=== PATIENT | female | born 1975 | race Caucasian/White ===

== ENCOUNTER → 2020-01-18 | Outpatient (CLI) | payer OTHER ==
--- NOTE | 2020-01-18 17:51 | Diagnostic Imaging Report ---
INDICATION: Palpable lump in the right breast. COMPARISON: No prior mammograms are available for comparison. 2-D and 3-D bilateral diagnostic mammography was performed. Current study was also evaluated with a Computer Aided Detection (CAD) system. BB marker was placed at the area of palpable abnormality in the upper and outer right breast. FINDINGS: There is a large lobulated mass in the upper and outer right breast at the area of palpable abnormality, anterior depth. This abuts the skin on the MLO view. There are some central suspicious microcalcifications. This is concerning for a breast neoplasm. In addition, there appears to be an enlarged lymph node in the right axilla. Left breast also shows a lobulated density in the outer aspect at posterior depth best seen on the CC view. There are some more benign-appearing nodular densities in the medial left breast at posterior depth best seen on the CC view. All of these areas will be evaluated with ultrasound. Left axilla is unremarkable. IMPRESSION: 1. Large mass in upper-outer right breast anterior depth corresponding to the palpable abnormality. This has central suspicious microcalcifications. This is concerning for a breast neoplasm and ultrasound evaluation will be performed. 2. Lobulated mass in the outer aspect of the left breast posterior depth, indeterminate. There are also smaller nodular densities in medial left breast posterior depth. These areas will be evaluated with ultrasound as well. ACR BI-RADS Category 0: Incomplete. (Needs additional imaging evaluation). Result letter will be mailed to the patient. Note: At least 10% of breast cancer is not imaged by mammography. Dictated by: Dictated on workstation # [id number]
--- NOTE | 2020-01-18 17:56 | Diagnostic Imaging Report ---
INDICATION: Palpable lump right breast. Patient had an abnormal diagnostic mammogram performed earlier today. Diagnostic mammogram also demonstrated left breast nodular densities. Correlation is made with diagnostic mammogram earlier same day. FINDINGS: Right breast: Sonographic interrogation in the area of palpable abnormality corresponds to the large mass noted on mammogram. There is a 4.3 cm x 3.2 cm x 4.8 cm heterogeneous mass with internal vascularity at the 10 o'clock location, 5 cm from the nipple. No other masses in the right breast are seen. There is an enlarged lymph node in the right axilla measuring 2.7 x 2.0 x 1.4 cm. This is concerning for a metastatic lymph node. Left breast: Interrogation of the outer left breast demonstrates a slightly lobulated but fairly well-circumscribed solid mass at the 3 o'clock location, 8 cm from the nipple. This measures 2.1 x 1.2 x 1.5 cm. This does show some internal vascularity. In addition, the medial left breast was evaluated. There is a solid nodule with adjacent cyst at the 9 o'clock location 3 cm from the nipple. In aggregate, these measure 10 mm x 7 mm x 5 mm. This is indeterminate. No other masses are seen. IMPRESSION: 1. Large, lobulated solid mass at the area of palpable abnormality in the right breast, 10 o'clock location. This is concerning for a large breast neoplasm. In addition, there is an enlarged lymph node in the right axilla. Tissue sampling of the mass and lymph node is recommended. 2. Macrolobulated solid nodule at the 3 o'clock location in the left breast. This may represent a fibroadenoma. However, in light of the findings in the right breast, tissue sampling of this lesion would be recommended. 3. Indeterminate hypoechoic nodule at the 9 o'clock location of the left breast, 3 cm from the nipple. Tissue sampling is recommended. ACR BI-RADS Category 4: Suspicious abnormality. Result letter will be mailed to the patient. Note: At least 10% of breast cancer is not imaged by mammography. Dictated by: Dictated on workstation # [id number]
== END ==
LOC: RAD 13:39 → EDBD 13:39
PROVIDERS: ATTEND Nurse Practitioner Family
DX: N63.10 Unspecified lump in the right breast, unspecified quadrant (principal); N63.11 Unspecified lump in the right breast, upper outer quadrant; N63.20 Unspecified lump in the left breast, unspecified quadrant
CPT/HCPCS: 76642; 77066; G0279; 77062

== ENCOUNTER → 2020-01-23 | Outpatient (CLI) | payer OTHER ==
[~2020-01-23] VITALS: Ht 170.2 cm; Wt 77.3 kg
[~2020-01-23] MED LIST: LIDOCAINE 1% INJ 20 ML 20 ML VIAL INJ ONE
--- NOTE | 2020-01-23 12:32 | Diagnostic Imaging Report ---
INDICATION: Right breast mass. Patient presents for biopsy. Patient brought to the procedure room placed on table in supine position. Ultrasound imaging of the right breast and right axilla was performed to evaluate appropriate entry site. The right breast and right axilla was prepped and draped in usual sterile fashion. A small amount of 1% lidocaine was utilized for local anesthesia. A total of 4 core biopsies were made into the large solid mass at the 10-12:30 location of the right breast, 5 cm from the nipple. Biopsies were obtained with the 14-gauge Achieve needle. Next, multiple passes were made into the enlarged lymph node utilizing a 14-gauge Achieve needle. Marker clips were deployed at the right axillary lymph node as well as the right breast mass. Hemostasis was obtained using manual compression. Patient tolerated the procedure well. IMPRESSION: Successful ultrasound-guided core biopsy of a large right upper outer quadrant breast mass as well as enlarged right axillary lymph node. Pathology results are currently pending. Dictated by: Dictated on workstation # [id number]
--- NOTE | 2020-01-23 12:34 | Diagnostic Imaging Report ---
INDICATION: Left breast mass. Patient presents for ultrasound-guided biopsy. Patient brought to the procedure room and placed on table in the supine position. Ultrasound imaging of the left breast was performed to evaluate appropriate entry site. Both the medial and lateral left breast was prepped and draped in usual sterile fashion. Small amount of 1% lidocaine was utilized for local anesthesia. Multiple biopsies of the small hypoechoic nodule at the 9 o'clock location of the left breast, 3 cm from the nipple were obtained using utilizing the 13-gauge vacuum-assisted handheld mammotome device. Marker clip was then deployed. Hemostasis was obtained. Next, multiple core biopsies were obtained of the lobulated solid mass at the 3 o'clock location left breast, 8 cm from the nipple, utilizing the 14-gauge Achieve needle. Marker clip was deployed. Hemostasis was obtained using manual compression. IMPRESSION: Successful ultrasound-guided core biopsies of the solid nodules at the 3 o'clock and 9 o'clock locations of the left breast, as described. Vacuum-assisted device was utilized for the 9 o'clock lesion. Pathology results are currently pending. Dictated by: Dictated on workstation # [id number]
--- NOTE | 2020-01-23 13:17 | Diagnostic Imaging Report ---
INDICATION: Bilateral breast masses. Patient is status post ultrasound-guided core biopsies. Bilateral CC, MLO and ML 2-D mammography was performed post biopsy. A marker clip is identified within the mass in the upper outer right breast anterior to mid depth. There is also a marker clip in the in the right axilla from right axillary lymph node biopsy. There is a marker clip within the lesion in the lateral left breast. A marker clip in the medial left breast is also noted. IMPRESSION: Status post biopsies in bilateral breasts and right axilla with marker clips in place, as described. Dictated by: Dictated on workstation # [id number]
== END ==
LOC: RAD 07:35
PROVIDERS: ATTEND Nurse Practitioner Family
DX: N63.20 Unspecified lump in the left breast, unspecified quadrant (principal); N63.10 Unspecified lump in the right breast, unspecified quadrant
CPT/HCPCS: 19083 ×2; 19084 ×2; 77066; G0279; 77062

== ENCOUNTER → 2020-01-29 | Outpatient (CLI) | payer SELFPAY ==
[~2020-01-29] MED LIST changes: +ARIP5TAB12 PO; +HOLD METFORMIN - RECEIVED CONTRAST 20 ML VIAL IV SCH; +IOHEXOL 350 MG/ML 100 ML (OMNIPAQUE 350) VIAL IV ONE; -LIDOCAINE 1% INJ 20 ML 20 ML VIAL INJ ONE; +LISI-552 PO; +MULT-1076 PO; +NS 100 ML (IVPB) BAG IV ONE; +OMEP20TA33 PO; +VENL150C PO
--- NOTE | 2020-01-29 12:33 | Diagnostic Imaging Report ---
EXAMINATION: CT Chest, Abdomen and Pelvis with intravenous contrast. TECHNIQUE: Multiple contiguous axial images were obtained through the chest, abdomen and pelvis after the uneventful administration of intravenous contrast. All CT scans use one or more of the following dose optimizing techniques: automated exposure control, MA and/or KvP adjustment based on a patient size and exam type, or iterative reconstruction. HISTORY: Breast cancer COMPARISON: None available. FINDINGS: There is no edema or pneumonia. No pleural effusion. No pneumothorax. No suspicious nodules. Heart size is normal. There are no coronary artery calcifications. No pericardial effusion. Aorta is normal in caliber. There is no axillary or supraclavicular lymphadenopathy. There is no mediastinal lymphadenopathy. There is a 3.4 x 3.0 cm right breast mass. There is right axillary lymphadenopathy measuring up to 12 mm in short axis. There are multiple masses in the left breast measuring up to 19 mm laterally and 28 mm medially. The liver is normal without focal lesion. There is no biliary ductal dilation. Gallbladder is normal. Pancreas is normal. Spleen is normal. Adrenal glands are normal. The kidneys are normal. There is no hydronephrosis. Urinary bladder is normal. Uterus is enlarged with endometrial thickening. Visualized bowel is normal in caliber without obstruction or inflammation. No free fluid or air. No abdominal or pelvic lymphadenopathy. Aorta is normal in caliber without aneurysm. There are no suspicious osseus lesions. IMPRESSION: 1. Bilateral breast masses, right greater than left with right axillary lymphadenopathy. 2. No intrathoracic or abdominal or pelvic lymphadenopathy. Dictated by: Dictated on workstation # [id number]
== END ==
LOC: RAD 11:22
PROVIDERS: ATTEND Internal Medicine Hematology & Oncology
DX: N63.20 Unspecified lump in the left breast, unspecified quadrant (principal); N63.10 Unspecified lump in the right breast, unspecified quadrant; R59.0 Localized enlarged lymph nodes; Z85.3 Personal history of malignant neoplasm of breast
CPT/HCPCS: 71260; 74177

== ENCOUNTER 2020-02-04 05:29 | Outpatient (RCR) | payer MEDICAID ==
[~2020-02-04] VITALS: Ht 170 cm; Wt 72.7 kg
[~2020-02-04 05:29] MED LIST changes: -HOLD METFORMIN - RECEIVED CONTRAST 20 ML VIAL IV SCH; -IOHEXOL 350 MG/ML 100 ML (OMNIPAQUE 350) VIAL IV ONE; -NS 100 ML (IVPB) BAG IV ONE
== END 2020-02-04 10:29 | disposition home or self-care (01) ==
LOC: PREOP 05:29
PROVIDERS: ATTEND Surgery
DX: Z01.812 Encounter for preprocedural laboratory examination (principal); C50.919 Malignant neoplasm of unspecified site of unspecified female breast; Z20.828 Contact with and (suspected) exposure to other viral communicable diseases
CPT/HCPCS: 87635

== ENCOUNTER → 2020-02-05 | Outpatient (CLI) | payer MEDICAID ==
[~2020-02-05] MED LIST changes: +CATHETER FLUSH 10 ML SYR IV PRN; +HEParin (CENTRAL IV FLUSH) 500 UNIT/5 ML SYR ONE; +HYDR-4226 PO
--- NOTE | 2020-02-05 14:16 | Diagnostic Imaging Report ---
EXAMINATION: MUGA scan INDICATION: Breast cancer The study was performed following administration of 31.8 mCi of 99M technetium tagged red blood cells. There are no prior MUGA scans available for comparison. There is generalized distribution of the radiotracer throughout the cardiac system. The ejection fraction is 65%. IMPRESSION: The ejection fraction is 65%. Dictated by: Dictated on workstation # [id number]
== END ==
LOC: CARD 12:25
PROVIDERS: ATTEND Internal Medicine Hematology & Oncology
DX: Z51.81 Encounter for therapeutic drug level monitoring (principal); C50.919 Malignant neoplasm of unspecified site of unspecified female breast
CPT/HCPCS: 78472; A9560

== ENCOUNTER 2020-02-07 07:00 | Day surgery (SDC) | payer MEDICAID, OTHER ==
[~2020-02-07] VITALS: Ht 170 cm; Wt 72.7 kg
[~2020-02-07 07:00] MED LIST changes: -CATHETER FLUSH 10 ML SYR IV PRN; -HEParin (CENTRAL IV FLUSH) 500 UNIT/5 ML SYR ONE; -HYDR-4226 PO
[2020-02-07 07:05] VITALS: BP 130/92
[2020-02-07] MEDS ORDERED: LACTATED RINGERS 1,000 ML IV PRN (07:09)
[2020-02-07] MEDS ORDERED: PROPOFOL INJECTION 50 ML IV ONE (07:15)
[2020-02-07] MEDS ORDERED: ceFAZolin 2 GM IV Premixed 50 ML IV ONE (07:15)
[2020-02-07] MEDS ORDERED: MIDAZOLAM 2 MG/2 ML (VERSED) VIAL ONE (07:16)
[2020-02-07] MEDS ORDERED: 0.9% SODIUM CHLORIDE PF INJ 20 ML VIAL ONE (07:24)
[2020-02-07] MEDS ORDERED: BUP/EPI 0.5% 1:200,000 (MARCAINE) 10ML VIAL IJ ONE (07:24)
[2020-02-07] MEDS ORDERED: HEParin (CENTRAL IV FLUSH) 500 UNIT/5 ML SYR ONE (07:24)
[2020-02-07] MEDS ORDERED: CATHETER FLUSH 10 ML SYR IV PRN (07:30)
[2020-02-07] MEDS ORDERED: fentaNYL INJECTION 100 MCG/2 ML AMP ONE (07:58)
--- NOTE | 2020-02-07 08:13 | Progress Note-Pre Operative ---
Pre-Operative Progress Note H&P Reviewed The H&P was reviewed, patient examined and no changes noted. Time Seen by Provider: 08:10 Date H&P Reviewed: Feb 07, 2020 Time H&P Reviewed: 08:11 Pre-Operative Diagnosis: Breast CA, Venous Insufficiency FLY TODD DO Feb 07, 2020 08:13
[2020-02-07 08:55] VITALS: BP 125/82
--- NOTE | 2020-02-07 08:57 | Anesthesia-General Post-Op ---
MAC Patient Condition Mental Status/LOC: Same as Preop Cardiovascular: Satisfactory Nausea/Vomiting: Absent Respiratory: Satisfactory Pain: Controlled Complications: Absent Post Op Complications Complications None Follow Up Care/Instructions Patient Instructions None needed. Anesthesiology Discharge Order Discharge Order Patient is doing well, no complaints, stable vital signs, no apparent adverse anesthesia problems. No complications reported per nursing. RADHA WYATT CRNA Feb 07, 2020 08:57
[2020-02-07] MEDS ORDERED: MEPERIDINE (DEMEROL) INJ 50 MG/ML IVP ONE (09:00)
[2020-02-07] MEDS ORDERED: ONDANSETRON 4 MG/2 ML (SDV) Z0FRAN IVP PRN (09:00)
[2020-02-07] MEDS ORDERED: morphine INJ 10 MG/ML 1ML (SYR OR VIAL) IVP ONE (09:00)
--- NOTE | 2020-02-07 09:04 | Progress Note-Post Operative ---
Post-Operative Progess Note Surgeon (s)/Wash Oil Pump Operator Helper (s) Surgeon FLY TODD DO Wash Oil Pump Operator Helper: NONE Pre-Operative Diagnosis Breast CA, Venous Insufficiency Post-Operative Diagnosis SAME Procedure & Operative Findings Date of Procedure 02/07/20 Procedure Performed/Findings PROCEDURE: [LEFT] Subclavian vein port placement. COMPLICATIONS: None. INDICATIONS: The patient is a 44 year old female [with breast CA and Venous insufficiency]. Patient understands the risks and benefits of port placement and wished to proceed with the procedure. Consent was signed on the chart. PROCEDURE: The patient was taken to the operating suite, was prepped and draped in the sterile fashion. A surgical pause was performed. Local anesthetic was to infiltrate at the clavicle and then infiltrated in the left anterior chest wall where port would be placed. Next, using an 18 Gauge finder needle with negative inspiration the Left Subclavian vein was accessed. Dark nonpulsatile blood was withdrawn. The wire was inserted using Seldinger technique and fluoroscopy assured proper placement. The needle was removed and the guidewire was secured in place to the drape with a hemostat. Then a #11 blade scalpel was used to make a stab incision along the wire and to make an incision over the [left anterior] chest. Cautery was used to dissect down to the pectoral fascia. A pocket was created with blunt dissection. The dilator sheath was then advanced over the wire using Seldinger technique and fluoroscopy again confirmed placement. The Groshong catheter was inserted through the sheath and the sheath was then removed. The Groshong wire was removed. The catheter was then tunneled to the left chest pocket. Fluoroscopy was used to cut to length and this was then attached to the port which was then placed within the pocket. The port was then accessed without difficulty. It was then flushed with saline and then heparin. The subcutaneous tissues were then reapproximated using 3-0 Vicryl. Skin was closed with 4-0 Undyed Monocryl, 3 interuppted subcuticular stitches. The areas were then washed and dried. Skin Affix was placed over incision and at the insertion point of the subclavian. The patient tolerated the procedure well without complication and was taken to recovery room in stable condition. Anesthesia Type MAC Estimated Blood Loss Estimated blood loss (mL): less than 5ml Specimens/Packing Specimens Removed FLY Schultz DO Feb 07, 2020 09:04
[2020-02-07] MEDS ORDERED: HYDR-4226 PO ×4 (09:06→09:29)
--- NOTE | 2020-02-07 09:07 | Discharge Inst-Surgical ---
Discharge Inst-Surgical Depart Medication/Instructions New, Converted or Re-Newed RX: RX Given to Pt/Family Patient Instructions Follow up Appt: Make appointment for 10 days. [phone] Instructions: No lifting greater than 20 pounds. No strenuous activity. May shower in 24 hours, no tub bath or soaking. Use incentive spirometer at home as directed. No Smoking Skin/Wound Care: May remove bandages in am. You need to leave the Dermabond on incision it will fall off on it's own. Symptoms to Report: Appetite Changes, Extremity Discoloration, Numbness/Tingling, Swelling Increased, Bleeding Excessive, Eyesight Changes, Pain Increased, Urine Color Change, Constipation(Persistent), Fever over 101 degree F, Pain/Pressure in chest, Urinating Difficulty, Cough Up/Vomit Blood, Heart Beat Irreg/Pounding, Pain/Pressure in jaw, Cramps in feet or legs, Lightheadedness, Pain/Pressure in shoulder, Diarrhea(Persistent), Memory Changes Suddenly, Questions/Concerns, Weight gain consecutive days, Dizziness/Fainting, Nausea/Vomiting, Shortness of Breath, Weight gain over 2 pounds If questions or concerns contact your physician Or seek help at emergency department. Activity Activity as Tolerated: Yes Activity Instructions: Avoid Stress to Incision Driving Instructions: No Driving/Refer to Dr. Lang Discharge Diet: No Restrictions Diet After 24 Hours: Clear Liquid if Nauseous If Any Problems/Questions/Issu: Contact Your Physician, Go to Emergency Room Skin/Wound Care Infection Signs and Symptoms: Increased Redness, Foul Odor of Wound, Increased Drainage, Skin Itchy or Has a Rash, Increased Swelling, Temperature Above 101 F Bathing Instructions: Shower Stitches/[place]/Dermabond Dis: Dermabond Ice Pack: Ice On and Off Site FLY TODD DO Feb 07, 2020 09:07
[2020-02-07 09:10] VITALS: BP 120/82
[2020-02-07 09:25] VITALS: BP_SYST 122; BP_SYST 135; BP_DIAS 78; BP_DIAS 82
[2020-02-07 09:55] VITALS: BP 135/91
--- NOTE | 2020-02-07 11:14 | Diagnostic Imaging Report ---
EXAMINATION: Fluoroscopy at 843 INDICATION: Port placement Fluoroscopic assistance was provided for Dr. Alvarado Doe during his internal port placement procedure. 6.1 seconds of fluoroscopy time was visualized. A single spot film of the upper thorax shows that there is a central venous catheter in place on the left with the tip of the catheter overlying the midportion superior vena cava. IMPRESSION: Fluoroscopic assistance was provided for Dr. Doe. Dictated by: Dictated on workstation # [id number]
== END 2020-02-07 10:05 | disposition home or self-care (01) ==
LOC: SDC 07:00
PROVIDERS: ATTEND Surgery
DX: C50.911 Malignant neoplasm of unspecified site of right female breast (principal); I87.2 Venous insufficiency (chronic) (peripheral); I10 Essential (primary) hypertension; G40.909 Epilepsy, unspecified, not intractable, without status epilepticus; F32.9 Major depressive disorder, single episode, unspecified; F41.9 Anxiety disorder, unspecified; K21.9 Gastro-esophageal reflux disease without esophagitis; Z79.899 Other long term (current) drug therapy; Z11.2 Encounter for screening for other bacterial diseases
CPT/HCPCS: 36561; 76000; 84703; 87081; C1788

== ENCOUNTER → 2020-04-08 | Outpatient (CLI) | payer MEDICAID, OTHER ==
[~2020-04-08] MED LIST changes: +CATHETER FLUSH 10 ML SYR IV PRN; +HEParin (CENTRAL IV FLUSH) 500 UNIT/5 ML SYR ONE; +HYDR-4226 PO
--- NOTE | 2020-04-08 16:00 | Diagnostic Imaging Report ---
EXAMINATION: MUGA scan. INDICATION: Breast cancer. Cardiotoxicity. TECHNIQUE: This study was performed following administration of 31.3 mCi of 99 technetium tagged red blood cells. Multiple images of the heart were obtained. FINDINGS: The prior MUGA scan of 02/05/2020 noted an ejection fraction of 65%. On this exam, the ejection fraction is now 67%. IMPRESSION: There has been a slight increase in the ejection fraction since the prior exam. The ejection fraction is now estimated to be 67%. Dictated by: Dictated on workstation # [id number]
== END ==
LOC: CARD 14:00
PROVIDERS: ATTEND Internal Medicine Hematology & Oncology
DX: Z51.81 Encounter for therapeutic drug level monitoring (principal); C50.411 Malignant neoplasm of upper-outer quadrant of right female breast
CPT/HCPCS: 78472; A9560

== ENCOUNTER 2020-04-25 12:54 | Outpatient (RCR) | payer MEDICAID, OTHER ==
[2020-01-28 15:52] LABS: BASOPHILS # (AUTO) 0.1 10^3/uL (0.0-0.1); BASOPHILS % (AUTO) 1 % (0-10); EOSINOPHILS # (AUTO) 0.1 10^3/uL (0.0-0.3); EOSINOPHILS % (AUTO) 1 % (0-10); HEMATOCRIT 36 % (35-52); HEMOGLOBIN 11.2 G/DL (11.5-16.0); LYMPHOCYTES # (AUTO) 1.7 X 10^3 (1.0-4.0); LYMPHOCYTES % (AUTO) 19 % (12-44); MEAN CORPUSCULAR HEMOGLOBIN 23 PG (25-34); MEAN CORPUSCULAR HGB CONC 31 G/DL (32-36); MEAN CORPUSCULAR VOLUME 74 FL (80-99); MEAN PLATELET VOLUME 8.7 FL (7.4-10.4); MONOCYTES # (AUTO) 0.8 X 10^3 (0.0-1.0); MONOCYTES % (AUTO) 9 % (0-12); NEUTROPHILS # (AUTO) 6.6 X 10^3 (1.8-7.8); NEUTROPHILS % (AUTO) 71 % (42-75); PLATELET COUNT 332 10^3/uL (130-400); WHITE BLOOD COUNT 9.3 10^3/uL (4.3-11.0)
[2020-01-28 16:18] LABS: ALANINE AMINOTRANSFERASE 14 U/L (0-55); ALBUMIN 4.2 GM/DL (3.2-4.5); ALKALINE PHOSPHATASE 83 U/L (40-136); BILIRUBIN,TOTAL 0.3 MG/DL (0.1-1.0); BUN/CREATININE RATIO 18; CALCIUM 9.3 MG/DL (8.5-10.1); CARBON DIOXIDE 22 MMOL/L (21-32); CHLORIDE 104 MMOL/L (98-107); CREATININE SERUM 0.82 MG/DL (0.60-1.30); GFR ESTIMATED > 60; GLUCOSE 97 MG/DL (70-105); POTASSIUM 3.8 MMOL/L (3.6-5.0); SODIUM 136 MMOL/L (135-145); TOTAL PROTEIN 7.4 GM/DL (6.4-8.2)
[2020-02-28 09:45] LABS: BASOPHILS # (AUTO) 0.1 10^3/uL (0.0-0.1); BASOPHILS % (AUTO) 1 % (0-10); EOSINOPHILS # (AUTO) 0.1 10^3/uL (0.0-0.3); EOSINOPHILS % (AUTO) 0 % (0-10); HEMATOCRIT 38 % (35-52); HEMOGLOBIN 12.5 G/DL (11.5-16.0); LYMPHOCYTES # (AUTO) 1.6 X 10^3 (1.0-4.0); LYMPHOCYTES % (AUTO) 14 % (12-44); MEAN CORPUSCULAR HEMOGLOBIN 25 PG (25-34); MEAN CORPUSCULAR HGB CONC 33 G/DL (32-36); MEAN CORPUSCULAR VOLUME 77 FL (80-99); MEAN PLATELET VOLUME 8.5 FL (7.4-10.4); MONOCYTES # (AUTO) 0.7 X 10^3 (0.0-1.0); MONOCYTES % (AUTO) 6 % (0-12); NEUTROPHILS # (AUTO) 9.5 X 10^3 (1.8-7.8); NEUTROPHILS % (AUTO) 80 % (42-75); PLATELET COUNT 183 10^3/uL (130-400)
[2020-02-28 10:08] LABS: ALANINE AMINOTRANSFERASE 16 U/L (0-55); ALBUMIN 4.1 GM/DL (3.2-4.5); ALKALINE PHOSPHATASE 106 U/L (40-136); BILIRUBIN,TOTAL 0.2 MG/DL (0.1-1.0); BUN/CREATININE RATIO 14; CALCIUM 9.1 MG/DL (8.5-10.1); CARBON DIOXIDE 24 MMOL/L (21-32); CHLORIDE 104 MMOL/L (98-107); CREATININE SERUM 0.85 MG/DL (0.60-1.30); GFR ESTIMATED > 60; GLUCOSE 107 MG/DL (70-105); POTASSIUM 4.2 MMOL/L (3.6-5.0); SODIUM 136 MMOL/L (135-145); TOTAL PROTEIN 7.2 GM/DL (6.4-8.2)
[2020-03-13 09:08] LABS: BASOPHILS # (AUTO) 0.1 10^3/uL (0.0-0.1); BASOPHILS % (AUTO) 1 % (0-10); EOSINOPHILS % (AUTO) 0 % (0-10); HEMATOCRIT 31 % (35-52); HEMOGLOBIN 10.2 G/DL (11.5-16.0); LYMPHOCYTES # (AUTO) 1.1 X 10^3 (1.0-4.0); LYMPHOCYTES % (AUTO) 8 % (12-44); MEAN CORPUSCULAR HEMOGLOBIN 25 PG (25-34); MEAN CORPUSCULAR HGB CONC 33 G/DL (32-36); MEAN CORPUSCULAR VOLUME 78 FL (80-99); MEAN PLATELET VOLUME 8.2 FL (7.4-10.4); MONOCYTES # (AUTO) 0.8 X 10^3 (0.0-1.0); MONOCYTES % (AUTO) 6 % (0-12); NEUTROPHILS # (AUTO) 11.3 X 10^3 (1.8-7.8); NEUTROPHILS % (AUTO) 85 % (42-75); PLATELET COUNT 145 10^3/uL (130-400); WHITE BLOOD COUNT 13.4 10^3/uL (4.3-11.0)
[2020-03-13 09:31] LABS: ALANINE AMINOTRANSFERASE 17 U/L (0-55); ALBUMIN 3.8 GM/DL (3.2-4.5); ALKALINE PHOSPHATASE 104 U/L (40-136); BILIRUBIN,TOTAL 0.2 MG/DL (0.1-1.0); BUN/CREATININE RATIO 10; CALCIUM 9.3 MG/DL (8.5-10.1); CARBON DIOXIDE 26 MMOL/L (21-32); CHLORIDE 106 MMOL/L (98-107); CREATININE SERUM 0.82 MG/DL (0.60-1.30); GFR ESTIMATED > 60; GLUCOSE 95 MG/DL (70-105); POTASSIUM 3.7 MMOL/L (3.6-5.0); SODIUM 141 MMOL/L (135-145); TOTAL PROTEIN 6.4 GM/DL (6.4-8.2)
[2020-03-20 09:59] LABS: BASOPHILS % (AUTO) 2 % (0-10); EOSINOPHILS % (AUTO) 1 % (0-10); HEMATOCRIT 29 % (35-52); HEMOGLOBIN 9.6 G/DL (11.5-16.0); LYMPHOCYTES # (AUTO) 0.3 X 10^3 (1.0-4.0); LYMPHOCYTES % (AUTO) 15 % (12-44); MEAN CORPUSCULAR HEMOGLOBIN 25 PG (25-34); MEAN CORPUSCULAR HGB CONC 33 G/DL (32-36); MEAN CORPUSCULAR VOLUME 77 FL (80-99); MEAN PLATELET VOLUME 8.4 FL (7.4-10.4); MONOCYTES # (AUTO) 0.2 X 10^3 (0.0-1.0); MONOCYTES % (AUTO) 10 % (0-12); NEUTROPHILS # (AUTO) 1.5 X 10^3 (1.8-7.8); NEUTROPHILS % (AUTO) 72 % (42-75); PLATELET COUNT 163 10^3/uL (130-400); WHITE BLOOD COUNT 2.1 10^3/uL (4.3-11.0)
[2020-03-20 10:14] LABS: BUN/CREATININE RATIO 12; CALCIUM 8.6 MG/DL (8.5-10.1); CARBON DIOXIDE 27 MMOL/L (21-32); CHLORIDE 106 MMOL/L (98-107); CREATININE SERUM 0.66 MG/DL (0.60-1.30); GFR ESTIMATED > 60; GLUCOSE 128 MG/DL (70-105); POTASSIUM 3.8 MMOL/L (3.6-5.0); SODIUM 138 MMOL/L (135-145)
[2020-03-27 09:08] LABS: BASOPHILS # (AUTO) 0.1 10^3/uL (0.0-0.1); BASOPHILS % (AUTO) 1 % (0-10); EOSINOPHILS % (AUTO) 0 % (0-10); HEMATOCRIT 32 % (35-52); HEMOGLOBIN 10.2 G/DL (11.5-16.0); LYMPHOCYTES % (AUTO) 9 % (12-44); MEAN CORPUSCULAR HEMOGLOBIN 26 PG (25-34); MEAN CORPUSCULAR HGB CONC 32 G/DL (32-36); MEAN CORPUSCULAR VOLUME 80 FL (80-99); MEAN PLATELET VOLUME 7.7 FL (7.4-10.4); MONOCYTES # (AUTO) 0.9 X 10^3 (0.0-1.0); MONOCYTES % (AUTO) 7 % (0-12); NEUTROPHILS # (AUTO) 9.8 X 10^3 (1.8-7.8); NEUTROPHILS % (AUTO) 83 % (42-75); PLATELET COUNT 191 10^3/uL (130-400); WHITE BLOOD COUNT 11.8 10^3/uL (4.3-11.0)
[2020-03-27 09:41] LABS: ALANINE AMINOTRANSFERASE 19 U/L (0-55); ALBUMIN 3.7 GM/DL (3.2-4.5); ALKALINE PHOSPHATASE 110 U/L (40-136); BILIRUBIN,TOTAL 0.2 MG/DL (0.1-1.0); BUN/CREATININE RATIO 14; CALCIUM 8.5 MG/DL (8.5-10.1); CARBON DIOXIDE 20 MMOL/L (21-32); CHLORIDE 109 MMOL/L (98-107); CREATININE SERUM 0.79 MG/DL (0.60-1.30); GFR ESTIMATED > 60; GLUCOSE 94 MG/DL (70-105); POTASSIUM 3.8 MMOL/L (3.6-5.0); SODIUM 139 MMOL/L (135-145); TOTAL PROTEIN 6.3 GM/DL (6.4-8.2)
[2020-04-10 09:14] LABS: BASOPHILS # (AUTO) 0.1 10^3/uL (0.0-0.1); BASOPHILS % (AUTO) 0 % (0-10); EOSINOPHILS % (AUTO) 0 % (0-10); HEMATOCRIT 30 % (35-52); HEMOGLOBIN 9.7 g/dL (11.5-16.0); LYMPHOCYTES # (AUTO) 0.4 10^3/uL (1.0-4.0); LYMPHOCYTES % (AUTO) 2 % (12-44); MEAN CORPUSCULAR HEMOGLOBIN 27 pg (25-34); MEAN CORPUSCULAR HGB CONC 33 g/dL (32-36); MEAN CORPUSCULAR VOLUME 83 fL (80-99); MEAN PLATELET VOLUME 8.4 fL (9.0-12.2); MONOCYTES # (AUTO) 0.2 10^3/uL (0.0-1.0); MONOCYTES % (AUTO) 1 % (0-12); NEUTROPHILS # (AUTO) 19.7 10^3/uL (1.8-7.8); NEUTROPHILS % (AUTO) 86 % (42-75); PLATELET COUNT 137 10^3/uL (130-400); WHITE BLOOD COUNT 22.9 10^3/uL (4.3-11.0)
[2020-04-10 09:34] LABS: ALANINE AMINOTRANSFERASE 25 U/L (0-55); ALBUMIN 3.9 GM/DL (3.2-4.5); ALKALINE PHOSPHATASE 120 U/L (40-136); BILIRUBIN,TOTAL 0.2 MG/DL (0.1-1.0); BUN/CREATININE RATIO 10; CARBON DIOXIDE 20 MMOL/L (21-32); CHLORIDE 106 MMOL/L (98-107); CREATININE SERUM 0.81 MG/DL (0.60-1.30); GFR ESTIMATED > 60; GLUCOSE 198 MG/DL (70-105); MAGNESIUM 1.8 MG/DL (1.6-2.4); POTASSIUM 3.9 MMOL/L (3.6-5.0); SODIUM 138 MMOL/L (135-145); TOTAL PROTEIN 6.6 GM/DL (6.4-8.2)
[2020-04-24 09:23] LABS: BASOPHILS # (AUTO) 0.1 10^3/uL (0.0-0.1); BASOPHILS % (AUTO) 0 % (0-10); EOSINOPHILS % (AUTO) 0 % (0-10); HEMATOCRIT 32 % (35-52); HEMOGLOBIN 10.7 g/dL (11.5-16.0); LYMPHOCYTES # (AUTO) 0.9 10^3/uL (1.0-4.0); LYMPHOCYTES % (AUTO) 4 % (12-44); MEAN CORPUSCULAR HEMOGLOBIN 29 pg (25-34); MEAN CORPUSCULAR HGB CONC 33 g/dL (32-36); MEAN CORPUSCULAR VOLUME 89 fL (80-99); MEAN PLATELET VOLUME 8.8 fL (9.0-12.2); MONOCYTES # (AUTO) 0.1 10^3/uL (0.0-1.0); MONOCYTES % (AUTO) 1 % (0-12); NEUTROPHILS # (AUTO) 20.9 10^3/uL (1.8-7.8); NEUTROPHILS % (AUTO) 90 % (42-75); PLATELET COUNT 178 10^3/uL (130-400); WHITE BLOOD COUNT 23.2 10^3/uL (4.3-11.0)
[2020-04-24 09:43] LABS: ALANINE AMINOTRANSFERASE 37 U/L (0-55); ALBUMIN 4.3 GM/DL (3.2-4.5); ALKALINE PHOSPHATASE 138 U/L (40-136); BILIRUBIN,TOTAL 0.5 MG/DL (0.1-1.0); BUN/CREATININE RATIO 15; CALCIUM 9.4 MG/DL (8.5-10.1); CARBON DIOXIDE 19 MMOL/L (21-32); CHLORIDE 104 MMOL/L (98-107); CREATININE SERUM 0.81 MG/DL (0.60-1.30); GFR ESTIMATED > 60; GLUCOSE 207 MG/DL (70-105); SODIUM 136 MMOL/L (135-145); TOTAL PROTEIN 7.3 GM/DL (6.4-8.2)
[~2020-04-25] VITALS: Ht 170.2 cm; Wt 83.9 kg
[~2020-04-25 12:54] MED LIST changes: -CATHETER FLUSH 10 ML SYR IV PRN; +CYCLOPHOSPHAMIDE INJECTION 1,000 MG, CYCLOPHOSPHAMIDE INJECTION 200 MG in NS (IVPB) CAN... IV SCH; +FAMOTIDINE 20MG/2ML IV (CANCER CTR) IV SCH; +FOSAPREPITANT (CANCER CENTER) 150 MG in NS (IVPB) CANCER CENTER ONLY 150 ML IV SCH; -HEParin (CENTRAL IV FLUSH) 500 UNIT/5 ML SYR ONE; +NS IV 1000 ML (CANCER CTR) IV SCH; +PEGFILGRASTIM 6 MG/0.6ML NEULASTA SC SCH; +diphenhydrAMINE 25 MG TAB (BENADRYL) CANCER CENTER PO ONE; +diphenhydrAMINE 25 MG TAB (BENADRYL) CANCER CENTER PO SCH; +diphenhydrAMINE 50 MG/ML INJ (CANCER CENTER) IV PRN
== END 2020-04-27 | disposition home or self-care (01) ==
LOC: ONC 12:54
PROVIDERS: ATTEND Internal Medicine Hematology & Oncology
DX: Z51.11 Encounter for antineoplastic chemotherapy (principal); C50.411 Malignant neoplasm of upper-outer quadrant of right female breast; I10 Essential (primary) hypertension; R53.83 Other fatigue; Z87.898 Personal history of other specified conditions; Z86.59 Personal history of other mental and behavioral disorders
CPT/HCPCS: 80053; 84443; 85025; G0463; 36591; 80048; 82728; 83540; 83735; 84703; 96367; 96372; 96375; 96409; 96411; 96413; 96415; 99213; 99214

== ENCOUNTER 2020-06-16 05:31 | Outpatient (RCR) | payer MEDICAID ==
[~2020-06-16] VITALS: Ht 170.2 cm; Wt 85.9 kg
[~2020-06-16 05:31] MED LIST changes: -CYCLOPHOSPHAMIDE INJECTION 1,000 MG, CYCLOPHOSPHAMIDE INJECTION 200 MG in NS (IVPB) CAN... IV SCH; -FAMOTIDINE 20MG/2ML IV (CANCER CTR) IV SCH; -FOSAPREPITANT (CANCER CENTER) 150 MG in NS (IVPB) CANCER CENTER ONLY 150 ML IV SCH; -NS IV 1000 ML (CANCER CTR) IV SCH; +OMEP40CA27 PO; -PEGFILGRASTIM 6 MG/0.6ML NEULASTA SC SCH; -diphenhydrAMINE 25 MG TAB (BENADRYL) CANCER CENTER PO ONE; -diphenhydrAMINE 25 MG TAB (BENADRYL) CANCER CENTER PO SCH; -diphenhydrAMINE 50 MG/ML INJ (CANCER CENTER) IV PRN
== END 2020-06-16 13:42 | disposition home or self-care (01) ==
LOC: PREOP 05:31
PROVIDERS: ATTEND Surgery
DX: Z01.812 Encounter for preprocedural laboratory examination (principal); C50.919 Malignant neoplasm of unspecified site of unspecified female breast; Z20.828 Contact with and (suspected) exposure to other viral communicable diseases
CPT/HCPCS: 87635

== ENCOUNTER 2020-06-18 06:36 | Day surgery (SDC) | payer MEDICAID ==
[2020-06-18] VITALS (12 sets, daily range): BP systolic 107–128; BP diastolic 78–93
[~2020-06-18] VITALS: Ht 170.2 cm; Wt 86.4 kg
[2020-06-18] MEDS ORDERED: ceFAZolin 2 GM IV Premixed 50 ML IV ONE (07:00)
[2020-06-18] MEDS ORDERED: CATHETER FLUSH 10 ML SYR IV PRN (07:00)
[2020-06-18] MEDS: LACTATED RINGERS 1,000 ML IV PRN ×2 (07:11→11:30)
--- NOTE | 2020-06-18 09:26 | Diagnostic Imaging Report ---
INDICATION: Right breast carcinoma. DETAILS OF THE PROCEDURE: A total of 1.1 mCi of technetium 99m filtered sulfur colloid was injected in 4 separate aliquots in the periareolar distribution of the right breast. Imaging was then performed. There does appear to be migration of activity into the right axilla which was marked on the patient's skin. IMPRESSION: Right breast lymphoscintigraphy for identification of sentinel node. Dictated by: Dictated on workstation # [id number]
[2020-06-18] MEDS ORDERED: METHYLENE BLUE 0.5% (PROVAYBLUE) 50 mg/10 ml vial IV ONE (10:44)
[2020-06-18] MEDS ORDERED: LIDOCAINE/EPI 1%-1:100,000 (XYLOCAINE) 20ML ONE (10:44)
--- NOTE | 2020-06-18 11:17 | Progress Note-Pre Operative ---
Pre-Operative Progress Note H&P Reviewed The H&P was reviewed, patient examined and no changes noted. Time Seen by Provider: 11:12 Date H&P Reviewed: Jun 18, 2020 Time H&P Reviewed: 11:13 Pre-Operative Diagnosis: Right breast cancer, site marked FLY TODD DO Jun 18, 2020 11:17
[2020-06-18] MEDS ORDERED: proPOfol 200 MG/20 ML (DIPRIVAN) VIAL IV ONE ×2 (12:09→13:25)
[2020-06-18] MEDS ORDERED: ONDANSETRON 4 MG/2 ML (SDV) Z0FRAN ONE (12:09)
[2020-06-18] MEDS ORDERED: MIDAZOLAM 2 MG/2 ML (VERSED) VIAL ONE (12:09)
[2020-06-18] MEDS ORDERED: LIDOCAINE PF 2% 5 ML (XYLOCAINE) VIAL ONE (12:09)
[2020-06-18] MEDS ORDERED: fentaNYL INJECTION 100 MCG/2 ML AMP ONE (12:09)
[2020-06-18] MEDS ORDERED: ROCURONIUM 10 MG/ML 5 ML SYRINGE IV ONE (12:09)
[2020-06-18] MEDS ORDERED: SEVOFLURANE (ULTANE) 15 ML INHAL SOLN ONE ×5 (12:09→13:24)
--- NOTE | 2020-06-18 13:29 | Progress Note-Post Operative ---
Post-Operative Progess Note Surgeon (s)/Chipper Operator (s) Surgeon FLY TODD DO Chipper Operator: Malick Pre-Operative Diagnosis Right breast cancer, site marked Post-Operative Diagnosis same pending path Procedure & Operative Findings Date of Procedure 06/18/20 Procedure Performed/Findings 1. Injection of Methylene blue dye 2. Right Partial Mastectomy with sentinel lymph node biopsy Anesthesia Type GET Estimated Blood Loss Estimated blood loss (mL): appx 20ml Specimens/Packing Specimens Removed right breast cancer sentinel lymph node x 3 Packing: Counter #s Site 1259 Axillary skin 37 In Vivo 112 Ex Vivo 190 FLY TODD DO Jun 18, 2020 13:29
[2020-06-18] MEDS ORDERED: HYDR-4226 PO (13:30)
--- NOTE | 2020-06-18 13:31 | Discharge Inst-Surgical ---
Discharge Inst-Surgical Depart Medication/Instructions New, Converted or Re-Newed RX: RX Given to Pt/Family Patient Instructions Follow up Appt: Make appointment for 1 week. [phone] Instructions: No lifting greater than 20 pounds. No strenuous activity. May shower in 24 hours, no tub bath or soaking. Use incentive spirometer at home as directed. No Smoking Skin/Wound Care: May remove bandages in am. You need to leave the Dermabond on incision it will fall off on it's own. Symptoms to Report: Appetite Changes, Extremity Discoloration, Numbness/Tingling, Swelling Increased, Bleeding Excessive, Eyesight Changes, Pain Increased, Urine Color Change, Constipation(Persistent), Fever over 101 degree F, Pain/Pressure in chest, Urinating Difficulty, Cough Up/Vomit Blood, Heart Beat Irreg/Pounding, Pain/Pressure in jaw, Cramps in feet or legs, Lightheadedness, Pain/Pressure in shoulder, Diarrhea(Persistent), Memory Changes Suddenly, Questions/Concerns, Weight gain consecutive days, Dizziness/Fainting, Nausea/Vomiting, Shortness of Breath, Weight gain over 2 pounds If questions or concerns contact your physician Or seek help at emergency department. Activity Activity as Tolerated: Yes Activity Instructions: Avoid Stress to Incision Driving Instructions: No Driving/Refer to Dr. Lang Discharge Diet: No Restrictions Diet After 24 Hours: Clear Liquid if Nauseous If Any Problems/Questions/Issu: Contact Your Physician, Go to Emergency Room Skin/Wound Care Infection Signs and Symptoms: Increased Redness, Foul Odor of Wound, Increased Drainage, Skin Itchy or Has a Rash, Increased Swelling, Temperature Above 101 F Wound Care Comment: Wear a sports bra (or tight fitting bra) for 7 days, all day long except to shower Bathing Instructions: Shower Stitches/[place]/Dermabond Dis: FLY Clemons DO Jun 18, 2020 13:31
[2020-06-18] MEDS ORDERED: BUPIVACAINE 0.5% 30 ML (SENSORCAINE) VIAL ONE (13:56)
[2020-06-18] MEDS ORDERED: MEPERIDINE (DEMEROL) INJ 50 MG/ML IVP ONE (14:00)
[2020-06-18] MEDS ORDERED: morphine INJ 10 MG/ML 1ML (SYR OR VIAL) IVP ONE (14:00)
[2020-06-18] MEDS ORDERED: ONDANSETRON 4 MG/2 ML (SDV) Z0FRAN IVP PRN (14:00)
[2020-06-18] MEDS ORDERED: PROMETHAZINE INJ 25 MG/ML (PHENERGAN) AMP IVP ONE (14:00)
--- NOTE | 2020-06-18 14:13 | Anesthesia-General Post-Op ---
General Patient Condition Mental Status/LOC: Same as Preop Cardiovascular: Satisfactory Nausea/Vomiting: Absent Respiratory: Satisfactory Pain: Controlled Complications: Absent Post Op Complications Complications None Follow Up Care/Instructions Patient Instructions None needed. Anesthesia/Patient Condition Patient Condition Patient is doing well, no complaints, stable vital signs, no apparent adverse anesthesia problems. No complications reported per nursing. ELISEO COULTER CRNA Jun 18, 2020 14:13
--- NOTE | 2020-06-19 02:55 | OPERATIVE REPORT ---
DATE OF SERVICE: 06/18/2020 PREOPERATIVE DIAGNOSIS: Right breast cancer. POSTOPERATIVE DIAGNOSIS: Right breast cancer, pending pathology. PROCEDURES: 1. Injection of methylene blue. 2. Partial mastectomy with sentinel lymph node biopsy. SURGEON: Alvarado Doe DO REHABILITATION CASEWORKER: Jamari Teresa DO ANESTHESIA: General endotracheal tube. SPECIMEN: 1. Right breast mass and surrounding tissue. 2. [place] lymph nodes, three lymph nodes found, possibly four. BLOOD LOSS: Less than 20 mL. FLUIDS: Per anesthesia. POSTOPERATIVE CONDITION: Stable. INDICATION FOR PROCEDURE: The patient is a 44-year-old female who has right breast cancer, who has already had the chemotherapy and radiation and now needs partial mastectomy and sentinel node biopsy. FINDINGS: The patient had lymphoscintigraphy performed and then had right breast mass removed and at least 3 lymph nodes, possibly 4, the [place] counter readings at the site of injection was 1259, the axillary skin was 37, in vivo 112 and ex vivo 190 on the main lymph node, which was also blue. PROCEDURE NOTE: After informed consent was obtained, the patient first sent down to radiology for a lymphoscintigraphy injected and then checked with nuclear med, could see some transfer into lymph nodes. She was then brought down to the operating room, placed on the operating table in supine position. A timeout was performed and everyone agreed on that we were doing the right breast, which had been marked previously. At this point, then injected methylene blue 0.5 mL at the 12, 3, 6, and 9 o'clock position and then massaged this into the area for 5 minutes. Once this was done, she was then sterilely prepped and draped in normal fashion. Local lidocaine was used to infiltrate the skin along the radial line right just to the lateral aspect of 12 o'clock. This was right where we could palpate the mass, the breast cancer. Infiltrated with local, then made an incision with #15 blade, carried down through the skin and subcutaneous tissue creating flaps laterally and medially to go around this and then removing this tissue en bloc all the way down to the pectoralis major fascia. Once this was completely removed, then marked it with a short stitch anterior or one long lateral stitch and then 2 stitches at the inferior or 6 o'clock position, sent to pathology. Copiously irrigated this area with normal saline. Hemostasis obtained using Bovie electrocautery, then elected to use the same incision, dissecting down towards the axillary fat pad using the probe to try to help direct this towards the hot lymph node. Again, measured at the site of injection of the nipple was a 1259 prior to cutting axillary skin measured 37. Once skin was opened, we were dissecting out, the highest number we got was 112. Able to dissect down into axillary fat pad we came across couple of lymph nodes. These were removed with some axillary fat, passed off the table. They looked like there may have been blue, but then continued dissecting, found a harder lymph node. This was 112 in vivo dissected down and then actually found a large blue lymph node, grasped with Terry and able to remove this with Bovie electrocautery. Ex vivo measured 190. Looked around with the probe as well as visually, did not see any other blue lymph nodes and did not really get anything higher than 19. At this point, since we removed 3 lymph nodes, elected to stop. Copiously irrigated with sterile water. Hemostasis obtained and then closed the incision, closing the deep tissue with 3-0 Vicryl and then closed the skin with 4-0 undyed Monocryl in a running subcuticular fashion. Area was cleaned and dried. Dermabond placed as well as dressings. The patient tolerated the procedure. Sponge and needle count correct at the end of the case. She was transferred to recovery room in stable condition. Dr. Teresa assisted in this case helping to close the incision, identify anatomy, hold anatomy out of the way. Job ID: [id number] DocumentID: [id number] Dictated Date: 06/18/2020 16:13:23 Senior Communications Engineer Date: 06/19/2020 01:03:02 Dictated By: DO SIXTO CONNELL
== END 2020-06-18 16:04 | disposition home or self-care (01) ==
LOC: SDC 06:36
PROVIDERS: ATTEND Surgery
DX: C50.411 Malignant neoplasm of upper-outer quadrant of right female breast (principal); C77.3 Secondary and unspecified malignant neoplasm of axilla and upper limb lymph nodes; F41.9 Anxiety disorder, unspecified; F32.9 Major depressive disorder, single episode, unspecified; I10 Essential (primary) hypertension; K21.9 Gastro-esophageal reflux disease without esophagitis; Z79.899 Other long term (current) drug therapy
CPT/HCPCS: 19301; 38525; 78195; 84703; 87081; 88305; 88307; 88341; 88342; 88364; 88365; A9541

== ENCOUNTER 2020-06-30 13:04 | Outpatient (RCR) | payer MEDICAID ==
[2020-05-08 10:46] LABS: BASOPHILS # (AUTO) 0.1 10^3/uL (0.0-0.1); BASOPHILS % (AUTO) 0 % (0-10); EOSINOPHILS % (AUTO) 0 % (0-10); HEMATOCRIT 31 % (35-52); HEMOGLOBIN 9.7 g/dL (11.5-16.0); LYMPHOCYTES # (AUTO) 0.9 10^3/uL (1.0-4.0); LYMPHOCYTES % (AUTO) 4 % (12-44); MEAN CORPUSCULAR HEMOGLOBIN 30 pg (25-34); MEAN CORPUSCULAR HGB CONC 32 g/dL (32-36); MEAN CORPUSCULAR VOLUME 97 fL (80-99); MEAN PLATELET VOLUME 8.7 fL (9.0-12.2); MONOCYTES # (AUTO) 0.1 10^3/uL (0.0-1.0); MONOCYTES % (AUTO) 0 % (0-12); NEUTROPHILS # (AUTO) 18.1 10^3/uL (1.8-7.8); NEUTROPHILS % (AUTO) 88 % (42-75); PLATELET COUNT 190 10^3/uL (130-400); WHITE BLOOD COUNT 20.6 10^3/uL (4.3-11.0)
[2020-05-08 11:04] LABS: ALANINE AMINOTRANSFERASE 31 U/L (0-55); ALBUMIN 4.1 GM/DL (3.2-4.5); ALKALINE PHOSPHATASE 149 U/L (40-136); BILIRUBIN,TOTAL 0.4 MG/DL (0.1-1.0); BUN/CREATININE RATIO 12; CALCIUM 9.1 MG/DL (8.5-10.1); CARBON DIOXIDE 19 MMOL/L (21-32); CHLORIDE 109 MMOL/L (98-107); CREATININE SERUM 0.78 MG/DL (0.60-1.30); GFR ESTIMATED > 60; GLUCOSE 152 MG/DL (70-105); POTASSIUM 4.4 MMOL/L (3.6-5.0); SODIUM 139 MMOL/L (135-145); TOTAL PROTEIN 6.9 GM/DL (6.4-8.2)
[2020-05-22 10:24] LABS: BASOPHILS # (AUTO) 0.1 10^3/uL (0.0-0.1); BASOPHILS % (AUTO) 0 % (0-10); EOSINOPHILS % (AUTO) 0 % (0-10); HEMATOCRIT 33 % (35-52); HEMOGLOBIN 10.5 g/dL (11.5-16.0); LYMPHOCYTES # (AUTO) 0.9 10^3/uL (1.0-4.0); LYMPHOCYTES % (AUTO) 3 % (12-44); MEAN CORPUSCULAR HEMOGLOBIN 32 pg (25-34); MEAN CORPUSCULAR HGB CONC 32 g/dL (32-36); MEAN CORPUSCULAR VOLUME 100 fL (80-99); MEAN PLATELET VOLUME 8.8 fL (9.0-12.2); MONOCYTES # (AUTO) 0.2 10^3/uL (0.0-1.0); MONOCYTES % (AUTO) 1 % (0-12); NEUTROPHILS # (AUTO) 27.7 10^3/uL (1.8-7.8); NEUTROPHILS % (AUTO) 91 % (42-75); PLATELET COUNT 194 10^3/uL (130-400)
[2020-05-22 10:34] LABS: WHITE BLOOD COUNT 30.4 10^3/uL (4.3-11.0)
[2020-05-22 10:41] LABS: ALANINE AMINOTRANSFERASE 30 U/L (0-55); ALBUMIN 4.3 GM/DL (3.2-4.5); ALKALINE PHOSPHATASE 140 U/L (40-136); BILIRUBIN,TOTAL 0.4 MG/DL (0.1-1.0); BUN/CREATININE RATIO 17; CALCIUM 9.8 MG/DL (8.5-10.1); CARBON DIOXIDE 18 MMOL/L (21-32); CHLORIDE 107 MMOL/L (98-107); CREATININE SERUM 0.82 MG/DL (0.60-1.30); GFR ESTIMATED > 60; GLUCOSE 137 MG/DL (70-105); POTASSIUM 4.3 MMOL/L (3.6-5.0); SODIUM 139 MMOL/L (135-145); TOTAL PROTEIN 7.2 GM/DL (6.4-8.2)
[~2020-06-30 13:04] MED LIST changes: +FAMOTIDINE 20MG/2ML IV (CANCER CTR) IV SCH; +NS IV 1000 ML (CANCER CTR) IV SCH; +PEGFILGRASTIM 6 MG/0.6ML NEULASTA SC SCH; +diphenhydrAMINE 25 MG TAB (BENADRYL) CANCER CENTER PO ONE; +diphenhydrAMINE 50 MG/ML INJ (CANCER CENTER) IV PRN
[2020-06-30 13:30] LABS: BASOPHILS # (AUTO) 0.1 10^3/uL (0.0-0.1); BASOPHILS % (AUTO) 1 % (0-10); EOSINOPHILS # (AUTO) 0.1 10^3/uL (0.0-0.3); EOSINOPHILS % (AUTO) 2 % (0-10); HEMATOCRIT 35 % (35-52); HEMOGLOBIN 11.5 g/dL (11.5-16.0); LYMPHOCYTES # (AUTO) 1.3 10^3/uL (1.0-4.0); LYMPHOCYTES % (AUTO) 30 % (12-44); MEAN CORPUSCULAR HEMOGLOBIN 31 pg (25-34); MEAN CORPUSCULAR HGB CONC 33 g/dL (32-36); MEAN CORPUSCULAR VOLUME 93 fL (80-99); MEAN PLATELET VOLUME 8.6 fL (9.0-12.2); MONOCYTES # (AUTO) 0.4 10^3/uL (0.0-1.0); MONOCYTES % (AUTO) 8 % (0-12); NEUTROPHILS # (AUTO) 2.6 10^3/uL (1.8-7.8); NEUTROPHILS % (AUTO) 58 % (42-75); PLATELET COUNT 205 10^3/uL (130-400); WHITE BLOOD COUNT 4.5 10^3/uL (4.3-11.0)
[2020-06-30 13:53] LABS: ALANINE AMINOTRANSFERASE 25 U/L (0-55); ALBUMIN 3.9 GM/DL (3.2-4.5); ALKALINE PHOSPHATASE 94 U/L (40-136); BILIRUBIN,TOTAL 0.3 MG/DL (0.1-1.0); BUN/CREATININE RATIO 14; CALCIUM 8.6 MG/DL (8.5-10.1); CARBON DIOXIDE 25 MMOL/L (21-32); CHLORIDE 108 MMOL/L (98-107); CREATININE SERUM 0.71 MG/DL (0.60-1.30); GFR ESTIMATED > 60; GLUCOSE 98 MG/DL (70-105); POTASSIUM 3.9 MMOL/L (3.6-5.0); SODIUM 141 MMOL/L (135-145); TOTAL PROTEIN 6.4 GM/DL (6.4-8.2)
== END 2020-07-14 14:54 | disposition home or self-care (01) ==
LOC: ONC 13:04
PROVIDERS: ATTEND Internal Medicine Hematology & Oncology
DX: Z51.11 Encounter for antineoplastic chemotherapy (principal); C50.411 Malignant neoplasm of upper-outer quadrant of right female breast; I10 Essential (primary) hypertension; D50.9 Iron deficiency anemia, unspecified; D63.0 Anemia in neoplastic disease; Z87.898 Personal history of other specified conditions; Z86.59 Personal history of other mental and behavioral disorders; Z78.0 Asymptomatic menopausal state; Z98.890 Other specified postprocedural states; Z79.899 Other long term (current) drug therapy; Z81.8 Family history of other mental and behavioral disorders
CPT/HCPCS: 80053; 85025; 96367; 96375; 96413; 96415; G0463; 36591; 82728; 83540; 96372

== ENCOUNTER 2020-09-29 10:29 | Outpatient (RCR) | payer MEDICAID ==
[~2020-09-29 10:29] MED LIST changes: -FAMOTIDINE 20MG/2ML IV (CANCER CTR) IV SCH; -LISI-552 PO; +LISI20TA26 PO; -NS IV 1000 ML (CANCER CTR) IV SCH; -PEGFILGRASTIM 6 MG/0.6ML NEULASTA SC SCH; -diphenhydrAMINE 25 MG TAB (BENADRYL) CANCER CENTER PO ONE; -diphenhydrAMINE 50 MG/ML INJ (CANCER CENTER) IV PRN
[2020-09-29 10:48] LABS: BASOPHILS % (AUTO) 1 % (0-10); EOSINOPHILS # (AUTO) 0.2 10^3/uL (0.0-0.3); EOSINOPHILS % (AUTO) 4 % (0-10); HEMATOCRIT 38 % (35-52); HEMOGLOBIN 12.8 g/dL (11.5-16.0); LYMPHOCYTES # (AUTO) 0.6 10^3/uL (1.0-4.0); LYMPHOCYTES % (AUTO) 16 % (12-44); MEAN CORPUSCULAR HEMOGLOBIN 30 pg (25-34); MEAN CORPUSCULAR HGB CONC 34 g/dL (32-36); MEAN CORPUSCULAR VOLUME 89 fL (80-99); MEAN PLATELET VOLUME 8.5 fL (9.0-12.2); MONOCYTES # (AUTO) 0.5 10^3/uL (0.0-1.0); MONOCYTES % (AUTO) 13 % (0-12); NEUTROPHILS # (AUTO) 2.5 10^3/uL (1.8-7.8); NEUTROPHILS % (AUTO) 66 % (42-75); PLATELET COUNT 195 10^3/uL (130-400); WHITE BLOOD COUNT 3.8 10^3/uL (4.3-11.0)
[2020-09-29 11:09] LABS: ALANINE AMINOTRANSFERASE 23 U/L (0-55); ALBUMIN 3.8 GM/DL (3.2-4.5); ALKALINE PHOSPHATASE 94 U/L (40-136); BILIRUBIN,TOTAL 0.4 MG/DL (0.1-1.0); BUN/CREATININE RATIO 14; CALCIUM 8.9 MG/DL (8.5-10.1); CARBON DIOXIDE 22 MMOL/L (21-32); CHLORIDE 108 MMOL/L (98-107); CREATININE SERUM 0.83 MG/DL (0.60-1.30); GFR ESTIMATED > 60; GLUCOSE 108 MG/DL (70-105); POTASSIUM 4.1 MMOL/L (3.6-5.0); SODIUM 140 MMOL/L (135-145); TOTAL PROTEIN 6.5 GM/DL (6.4-8.2)
== END 2020-10-28 | disposition home or self-care (01) ==
LOC: ONC 10:29
PROVIDERS: ATTEND Internal Medicine Hematology & Oncology
DX: C50.411 Malignant neoplasm of upper-outer quadrant of right female breast (principal); I10 Essential (primary) hypertension; D50.9 Iron deficiency anemia, unspecified; D63.0 Anemia in neoplastic disease; K21.9 Gastro-esophageal reflux disease without esophagitis; R23.2 Flushing; Z86.59 Personal history of other mental and behavioral disorders; Z78.0 Asymptomatic menopausal state; Z98.890 Other specified postprocedural states; Z79.899 Other long term (current) drug therapy; Z90.11 Acquired absence of right breast and nipple; Z92.21 Personal history of antineoplastic chemotherapy; Z87.898 Personal history of other specified conditions
CPT/HCPCS: 77290; 77295; 77300; 77334 ×2; 77470; G0463; 36591; 77307; 77336; 77417; 80053; 85025; 99205; 99215

== ENCOUNTER → 2020-11-14 | Outpatient (CLI) | payer MEDICAID ==
[~2020-11-14] MED LIST changes: +CATHETER FLUSH 10 ML SYR IV PRN; +HOLD METFORMIN - RECEIVED CONTRAST 20 ML VIAL IV SCH; +IOHEXOL 350 MG/ML 100 ML (OMNIPAQUE 350) VIAL IV ONE; +NS 100 ML (IVPB) BAG IV ONE
--- NOTE | 2020-11-14 18:07 | Diagnostic Imaging Report ---
INDICATION: History of breast carcinoma. Patient has a lump in the right lateral neck. Comparison is made with prior CT chest and abdomen study from 01/29/2020. CT NECK: The visualized intracranial structures are unremarkable. Posterior nasopharynx and oropharynx are unremarkable. Parapharyngeal fat planes are preserved. The larynx is unremarkable. No definite thyroid mass is detected. Submandibular and parotid glands appear to be symmetric bilaterally. No definite cervical lymphadenopathy is seen. No fluid collection or mass is detected. IMPRESSION: Unremarkable CT of the neck. CT CHEST: A left chest wall port is noted. Previously noted bilateral breast masses are no longer visualized. No axillary lymphadenopathy is identified. No definite supraclavicular lymphadenopathy is seen. No internal mammary lymphadenopathy is detected. No mediastinal or hilar lymphadenopathy is detected. There is no pericardial or pleural fluid. No pulmonary infiltrates, nodules or masses are detected. Bony structures are unremarkable. IMPRESSION: Unremarkable CT of the chest. No thoracic lymphadenopathy or evidence of pulmonary metastatic disease is detected. Previously noted bilateral breast masses are no longer visualized. CT ABDOMEN: No discrete liver mass is detected. Gallbladder is unremarkable. There is no biliary duct dilatation. Pancreas and spleen are unremarkable. No adrenal mass is detected. Kidneys are unremarkable. Aorta is nonaneurysmal. No central retroperitoneal or mesenteric lymphadenopathy is identified. The small and large bowel loops are normal caliber. There is no obstruction. No free fluid or fluid collection is identified. Bony structures are nonacute. IMPRESSION: Unremarkable CT of the abdomen. No lymphadenopathy or evidence of metastatic disease is detected. Dictated by: Dictated on workstation # [id number]
== END ==
LOC: RAD 13:45
PROVIDERS: ATTEND Internal Medicine Hematology & Oncology
DX: R22.1 Localized swelling, mass and lump, neck (principal); Z85.3 Personal history of malignant neoplasm of breast
CPT/HCPCS: 70491; 71260; 74160

== ENCOUNTER 2020-12-22 15:06 | Outpatient (RCR) | payer MEDICAID ==
[2020-11-03 10:39] LABS: BASOPHILS % (AUTO) 1 % (0-10); EOSINOPHILS # (AUTO) 0.1 10^3/uL (0.0-0.3); EOSINOPHILS % (AUTO) 2 % (0-10); HEMATOCRIT 40 % (35-52); HEMOGLOBIN 13.1 g/dL (11.5-16.0); LYMPHOCYTES # (AUTO) 0.6 10^3/uL (1.0-4.0); LYMPHOCYTES % (AUTO) 13 % (12-44); MEAN CORPUSCULAR HEMOGLOBIN 31 pg (25-34); MEAN CORPUSCULAR HGB CONC 33 g/dL (32-36); MEAN CORPUSCULAR VOLUME 94 fL (80-99); MEAN PLATELET VOLUME 8.6 fL (9.0-12.2); MONOCYTES # (AUTO) 0.4 10^3/uL (0.0-1.0); MONOCYTES % (AUTO) 10 % (0-12); NEUTROPHILS # (AUTO) 3.3 10^3/uL (1.8-7.8); NEUTROPHILS % (AUTO) 74 % (42-75); PLATELET COUNT 191 10^3/uL (130-400); WHITE BLOOD COUNT 4.5 10^3/uL (4.3-11.0)
[2020-11-03 10:55] LABS: ALANINE AMINOTRANSFERASE 14 U/L (0-55); ALBUMIN 3.8 GM/DL (3.2-4.5); ALKALINE PHOSPHATASE 88 U/L (40-136); BILIRUBIN,TOTAL 0.4 MG/DL (0.1-1.0); BUN/CREATININE RATIO 10; CALCIUM 9.5 MG/DL (8.5-10.1); CARBON DIOXIDE 26 MMOL/L (21-32); CHLORIDE 105 MMOL/L (98-107); CREATININE SERUM 0.81 MG/DL (0.60-1.30); GFR ESTIMATED > 60; GLUCOSE 98 MG/DL (70-105); POTASSIUM 4.4 MMOL/L (3.6-5.0); SODIUM 138 MMOL/L (135-145); TOTAL PROTEIN 6.6 GM/DL (6.4-8.2)
[~2020-12-22 15:06] MED LIST changes: -CATHETER FLUSH 10 ML SYR IV PRN; -HOLD METFORMIN - RECEIVED CONTRAST 20 ML VIAL IV SCH; -IOHEXOL 350 MG/ML 100 ML (OMNIPAQUE 350) VIAL IV ONE; -NS 100 ML (IVPB) BAG IV ONE; -OMEP40CA27 PO; +OMEP40CA6 PO
== END 2021-02-01 | disposition home or self-care (01) ==
LOC: ONC 15:06
PROVIDERS: ATTEND Internal Medicine Hematology & Oncology
DX: C50.411 Malignant neoplasm of upper-outer quadrant of right female breast (principal); I10 Essential (primary) hypertension; D50.9 Iron deficiency anemia, unspecified; D63.0 Anemia in neoplastic disease; K21.9 Gastro-esophageal reflux disease without esophagitis; R23.2 Flushing; Z86.59 Personal history of other mental and behavioral disorders; Z78.0 Asymptomatic menopausal state; Z98.890 Other specified postprocedural states; Z79.899 Other long term (current) drug therapy; Z90.11 Acquired absence of right breast and nipple; Z92.21 Personal history of antineoplastic chemotherapy; Z87.898 Personal history of other specified conditions
CPT/HCPCS: 80053; 85025; G0463; 96523; 99213

== ENCOUNTER → 2021-01-07 | Outpatient (CLI) | payer MEDICAID ==
--- NOTE | 2021-01-07 12:42 | Diagnostic Imaging Report ---
PROCEDURE: Pelvic comp/transvaginal sonogram. TECHNIQUE: Complete transabdominal and transvaginal pelvic ultrasound was performed. In addition, limited pelvic Doppler was performed. INDICATION: Chemotherapy and radiation for breast cancer treatment. This study is performed to evaluate for endometrial thickness. FINDINGS: The uterus measures 11.2 x 6.3 x 7.9 cm and appears to be retroverted. The endometrium is thickened measuring up to 2.0 cm. No myometrial mass is identified. The left ovary was not visualized. The right ovary measures 4.0 x 4.4 x 4.0 cm. There is a cyst involving the right ovary measuring 3.0 x 3.4 x 4.0 cm. There is blood flow to the right ovary. No free fluid is seen. IMPRESSION: 1. Abnormally thickened endometrium measuring 2.0 cm. 2. There is a 4.0 x 3.4 cm simple right ovarian cyst. Dictated by: Dictated on workstation # [id number]
== END ==
LOC: RAD 11:00
PROVIDERS: ATTEND Obstetrics & Gynecology
DX: N83.201 Unspecified ovarian cyst, right side (principal); R93.89 Abnormal findings on diagnostic imaging of other specified body structures; Z79.810 Long term (current) use of selective estrogen receptor modulators (SERMs)
CPT/HCPCS: 76830; 76856

== ENCOUNTER 2021-03-30 05:33 | Outpatient (CLI) | payer MEDICAID ==
[~2021-03-30] VITALS: Ht 170.2 cm; Wt 95.0 kg
[2021-03-30] MEDS ORDERED: LORA5SOL52 PO (09:24)
[2021-03-30] MEDS ORDERED: TAMO20TA2 PO (09:25)
[2021-03-31] MEDS ORDERED: ACET-93 PO (10:23)
[2021-03-31] MEDS ORDERED: IBUP-1773 PO (10:23)
== END 2021-03-30 09:53 | disposition home or self-care (01) ==
LOC: PREOP 05:33
PROVIDERS: ATTEND Obstetrics & Gynecology
DX: Z01.818 Encounter for other preprocedural examination (principal)

== ENCOUNTER 2021-03-31 08:18 | Day surgery (SDC) | payer MEDICAID ==
[2021-03-31] VITALS (10 sets, daily range): BP systolic 98–132; BP diastolic 71–97
[~2021-03-31] VITALS: Ht 170.2 cm; Wt 95.0 kg
[~2021-03-31 08:18] MED LIST changes: +LORA5SOL52 PO; +TAMO20TA2 PO
--- OUTSIDE RECORDS SUMMARY | 2021-03-31 08:22 | XMS REPORT | Clinical Summary ---
Author Author [facility] Address Unknown Phone Unavailable Care Team Providers Care Sheriffs Officer Name Role Phone PCP Unavailable Allergies No known active allergies Medications No known medications Active Problems Not on file Social History Date Tobacco Use Types Packs/Day Years Used Never Assessed Sex Assigned at Date Recorded Not on file Last Filed Vital Signs Reading Time Taken Comments Vital Sign 146/95 04/06/2017 9:05 PM CDT Blood Pressure 86 04/06/2017 9:05 PM CDT Pulse 36.7 C (98 F) 04/06/2017 9:05 PM CDT Temperature 16 04/06/2017 9:05 PM CDT Respiratory Rate 100% 04/06/2017 9:05 PM CDT Oxygen Saturation - - Inhaled Oxygen Concentration 64.4 kg (142 lb) 04/06/2017 9:05 PM CDT Weight 170.2 cm (5' 7") 04/06/2017 9:05 PM CDT Height 22.24 04/06/2017 9:05 PM CDT Body Mass Index Plan of Treatment Health Maintenance Due Date Last Done Comments Varicella Vaccines (1 of 1977 2 - 2-dose childhood series) COVID-19 Vaccine (1) 1988 Hepatitis C Screening 1994 DTaP,Tdap,and Td Vaccines 11/26/1995 (1 - Tdap) MMR Vaccines-Adult 11/26/1995 Cervical Cancer Screening 1997 Influenza Vaccine (#1) 2021 Pneumo-Vaccine: 65+Yrs (1 2041 of 1 - PPSV23) HIB Vaccines Aged Out No longer eligible based on patient's age to complete this topic IPV Vaccines Aged Out No longer eligible based on patient's age to complete this topic Meningococcal Vaccine Aged Out No longer eligib le based on patient's age to complete this topic Pneumo-Vaccine: Peds (0-5 Aged Out No longer el igible based on patient's age to Yrs) & At-Risk Patients complete this topic (6-64 Yrs) Rotavirus Vaccines Aged Out No longer eligible based on patient's age to complete this topic Results Not on filefrom Last 3 Months Insurance Type Payer Benefit Subscriber ID Effective Phone Address Plan / Dates Group [facility] [id number] 2016- 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
[2021-03-31] MEDS ORDERED: fentaNYL INJ 100 MCG/2 ML AMP ONE (08:27)
[2021-03-31] MEDS ORDERED: proPOfol 200 MG/20 ML (DIPRIVAN) VIAL IV ONE (08:27)
[2021-03-31] MEDS ORDERED: MIDAZOLAM 2 MG/2 ML (VERSED) VIAL ONE (08:27)
[2021-03-31] MEDS ORDERED: LIDOCAINE PF 2% 5 ML (XYLOCAINE) VIAL ONE (08:27)
[2021-03-31] MEDS ORDERED: ONDANSETRON 4 MG/2 ML (SDV) Z0FRAN ONE (08:27)
[2021-03-31] MEDS ORDERED: SEVOFLURANE (ULTANE) 15 ML INHAL SOLN ONE (08:27)
[2021-03-31] MEDS ORDERED: ceFAZolin 2 GM IV Premixed 50 ML IV ONE (08:30)
[2021-03-31] MEDS ORDERED: LACTATED RINGERS 1,000 ML IV PRN (08:30)
[2021-03-31 08:36] LABS: BILIRUBIN,URINE NEGATIVE (NEGATIVE); CLARITY,URINE SL CLOUDY; COLOR,URINE YELLOW; GLUCOSE, URINE (UA) NEGATIVE (NEGATIVE); KETONES,URINE NEGATIVE (NEGATIVE); LEUKOCYTE ESTERASE ,URINE NEGATIVE (NEGATIVE); NITRITE,URINE NEGATIVE (NEGATIVE); PROTEIN,URINE NEGATIVE (NEGATIVE)
[2021-03-31 08:44] LABS: BACTERIA,URINE TRACE /HPF; RBC,URINE RARE /HPF; WBC,URINE RARE /HPF
--- NOTE | 2021-03-31 09:07 | Progress Note-Pre Operative ---
Pre-Operative Progress Note H&P Reviewed The H&P was reviewed, patient examined and no changes noted. Date Seen by Provider: Mar 31, 2021 Time Seen by Provider: 09:00 Date H&P Reviewed: Mar 31, 2021 Time H&P Reviewed: 07:30 Pre-Operative Diagnosis: abnormal uterine bleeding, thickened endometrium ANDREINA BOUDREAUX DO Mar 31, 2021 09:07
[2021-03-31 09:51] LABS: BASOPHILS % (AUTO) 1 % (0-10); EOSINOPHILS # (AUTO) 0.1 10^3/uL (0.0-0.3); EOSINOPHILS % (AUTO) 1 % (0-10); HEMATOCRIT 38 % (35-52); HEMOGLOBIN 12.6 g/dL (11.5-16.0); LYMPHOCYTES # (AUTO) 0.8 10^3/uL (1.0-4.0); LYMPHOCYTES % (AUTO) 13 % (12-44); MEAN CORPUSCULAR HEMOGLOBIN 33 pg (25-34); MEAN CORPUSCULAR HGB CONC 33 g/dL (32-36); MEAN CORPUSCULAR VOLUME 98 fL (80-99); MEAN PLATELET VOLUME 9.4 fL (9.0-12.2); MONOCYTES # (AUTO) 0.4 10^3/uL (0.0-1.0); MONOCYTES % (AUTO) 7 % (0-12); NEUTROPHILS # (AUTO) 4.5 10^3/uL (1.8-7.8); NEUTROPHILS % (AUTO) 78 % (42-75); PLATELET COUNT 179 10^3/uL (130-400); WHITE BLOOD COUNT 5.7 10^3/uL (4.3-11.0)
--- NOTE | 2021-03-31 10:17 | Anesthesia-General Post-Op ---
General Patient Condition Mental Status/LOC: Same as Preop Cardiovascular: Satisfactory Nausea/Vomiting: Absent Respiratory: Satisfactory Pain: Controlled Complications: Absent Post Op Complications Complications None Follow Up Care/Instructions Patient Instructions None needed. Anesthesia/Patient Condition Patient Condition Patient is doing well, no complaints, stable vital signs, no apparent adverse anesthesia problems. No complications reported per nursing. RADHA WYATT CRNA Mar 31, 2021 10:17
--- NOTE | 2021-03-31 10:22 | Operative Report ---
Operative Report Date of Procedure/Surgery Mar 31, 2021 Surgeon (s) ANDREINA BOUDREAUX DO College Tutor (s): Vanessa Reilly, MS III Post-Operative Diagnosis Endometrial polyp vs submucosal fibroid Procedure Performed Hysteroscopy, dilation and curettage Description of Procedure Anesthesia Type: General (LMA) Estimated blood loss (mL): minimal Specimen(s) collected/removed endometrial curettings/ endometrial polyp vs submucosal fibroid Description of the Procedure with informed consent the patient was taken to the operating room where general anesthesia via LMA was found to be adequate. She was prepped and draped in the usual sterile fashion in the dorsolithotomy position. the bladder was drained of clear, yellow urine with a red rubber catheter. A speculum was placed in the vagina and the cervix was grasped with a tenaculum. The cervix was gently dilated with Saman dilators and then the hysteroscope was inserted and revealed the above mentioned findings. The scope was then removed and a curette was done removing the mass. I repeated the curette until a gritty texture was heard. I then repeated the hysteroscope The instruments were now removed from the uterus and the patient was taken to recovery in a stable condition. Sponge, lap and instrument counts were correct times two. Findings of the Procedure large posterior mass consistent with fibroid or broad based fibroid Allergies and Home Medications Allergies Coded Allergies: No Known Drug Allergies (Unverified , 06/18/20) Patient Home Medication List Home Medication List Reviewed: Yes Aripiprazole (Abilify) 5 Mg Tablet, 5 MG PO DAILY, (Reported) Entered as Reported by: MOHIT VALENZUELA on 02/01/20 1221 Lisinopril (Lisinopril) 20 Mg Tablet, 20 MG PO DAILY, (Reported) Entered as Reported by: MOHIT VALENZUELA on 02/01/20 1221 Multivitamin/Iron/Folic Acid (Multivitamin with Iron Tablet) 1 Each Tablet, 1 EACH PO DAILY, (Reported) Entered as Reported by: MOHIT VALENZUELA on 02/01/20 1221 Tamoxifen Citrate (Tamoxifen Citrate) 20 Mg Tablet, 20 MG PO, (Reported) Entered as Reported by: CASIE MCCORD on 03/30/21 0925 Venlafaxine HCl (Effexor Xr) 150 Mg Cap.er.24h, 150 MG PO DAILY, (Reported) Entered as Reported by: MOHIT VALENZUELA on 02/01/20 1221 Discontinued Medications Hydrocodone/Acetaminophen (Hydrocodone/Acetaminophen 5 MG/325 MG TAB) 1 Each Tablet, 1 TAB PO Q6H Discontinued Reason: No Longer Taking Prescribed by: FLY TODD on 06/18/20 1330 Loratadine (Loratadine Allergy) 5 Mg/5 Ml Solution, 5 MG PO, (Reported) Discontinued Reason: No Longer Taking Entered as Reported by: CASIE MCCORD on 03/30/21 0924 Omeprazole (Omeprazole) 40 Mg Capsule.dr, 40 MG PO DAILY, (Reported) Discontinued Reason: No Longer Taking Entered as Reported by: CHELSEA KOEHLER on 06/12/20 1405 ANDREINA BOUDREAUX DO Mar 31, 2021 10:21
[2021-03-31] MEDS ORDERED: ACET-93 PO (10:23)
[2021-03-31] MEDS ORDERED: IBUP-1773 PO (10:23)
--- NOTE | 2021-03-31 10:26 | Discharge Inst-Women's Service ---
Discharge Inst-Women's Serv Depart Medication/Instructions New, Converted or Re-Newed RX: RX on Chart Instructions expect cramping for a few days, light bleeding/spotting for up to two weeks. Final Diagnosis endometrial polyp vs fibroid post menopausal bleeding Problems Reviewed?: Yes Consults/Follow Up Additional Follow Up: Yes Activity Activity: Activity as Tolerated Driving Instructions: No Driving for 24 Hours NO SMOKING: NO SMOKING Nothing Inside Vagina: No Douching, No [place], No Tampons Diet Discharge Diet: No Restrictions Symptoms to Report to : Bleeding Excessive, Pain Increased, Fever Over 101 Degrees F, Vaginal Discharge Foul For Any Problems or Questions: Contact Your Physician ANDREINA BOUDREAUX DO Mar 31, 2021 10:26
[2021-03-31] MEDS ORDERED: KETOROLAC 30 MG/ML VIAL IVP ONE (10:30)
[2021-03-31] MEDS ORDERED: morphine INJ 10 MG/ML 1ML (SYR OR VIAL) IVP ONE (10:30)
[2021-03-31] MEDS ORDERED: MEPERIDINE (DEMEROL) INJ 50 MG/ML IVP ONE (10:30)
[2021-03-31] MEDS ORDERED: ONDANSETRON 4 MG/2 ML (SDV) Z0FRAN IVP PRN (10:30)
[2021-03-31] MEDS ORDERED: KETOROLAC 30 MG/ML VIAL ONE (10:35)
== END 2021-03-31 13:23 | disposition home or self-care (01) ==
LOC: SDC 08:18
PROVIDERS: ATTEND Obstetrics & Gynecology
DX: N84.0 Polyp of corpus uteri (principal); I10 Essential (primary) hypertension; F41.9 Anxiety disorder, unspecified; F32.9 Major depressive disorder, single episode, unspecified; Z79.899 Other long term (current) drug therapy; Z85.3 Personal history of malignant neoplasm of breast; Z79.810 Long term (current) use of selective estrogen receptor modulators (SERMs)
CPT/HCPCS: 36415; 81000; 84703; 85025; 87081

== ENCOUNTER → 2021-04-29 | Outpatient (CLI) | payer MEDICAID ==
[~2021-04-29] MED LIST changes: +ACET-93 PO; +IBUP-1773 PO
--- NOTE | 2021-04-29 09:34 | Diagnostic Imaging Report ---
Indication: Right breast carcinoma, status post lumpectomy. Correlation is made with prior mammogram from 01/18/2020 and 01/23/2020. 2-D and 3-D bilateral diagnostic mammography was performed with CAD. Post lumpectomy changes on the right are noted. No residual recurrent mass is identified. The lobulated mass in the outer left breast posterior depth has been previously biopsied with benign result. This appears stable. No new mass or malignant-appearing microcalcifications are seen. [id number] hub is located in the left axilla. IMPRESSION: BI-RADS Category 2 Post-therapeutic changes. No mammographic features suspicious for malignancy are identified. ACR BI-RADS Category 2: Benign findings. Result letter will be mailed to the patient. Note: At least 10% of breast cancer is not imaged by mammography. Dictated by: Dictated on workstation # [id number]
== END ==
LOC: RAD 09:15
PROVIDERS: ATTEND Internal Medicine Hematology & Oncology
DX: C50.419 Malignant neoplasm of upper-outer quadrant of unspecified female breast (principal); R22.1 Localized swelling, mass and lump, neck; Z98.890 Other specified postprocedural states
CPT/HCPCS: 77066; G0279; 77062

== ENCOUNTER 2021-05-04 09:27 | Outpatient (RCR) | payer MEDICAID ==
[2021-05-04 09:42] LABS: BASOPHILS % (AUTO) 1 % (0-10); EOSINOPHILS # (AUTO) 0.1 10^3/uL (0.0-0.3); EOSINOPHILS % (AUTO) 2 % (0-10); HEMATOCRIT 37 % (35-52); HEMOGLOBIN 12.7 g/dL (11.5-16.0); LYMPHOCYTES % (AUTO) 22 % (12-44); MEAN CORPUSCULAR HEMOGLOBIN 33 pg (25-34); MEAN CORPUSCULAR HGB CONC 34 g/dL (32-36); MEAN CORPUSCULAR VOLUME 96 fL (80-99); MEAN PLATELET VOLUME 9.1 fL (9.0-12.2); MONOCYTES # (AUTO) 0.5 10^3/uL (0.0-1.0); MONOCYTES % (AUTO) 10 % (0-12); NEUTROPHILS % (AUTO) 65 % (42-75); PLATELET COUNT 180 10^3/uL (130-400); WHITE BLOOD COUNT 4.5 10^3/uL (4.3-11.0)
[2021-05-04 10:46] LABS: POTASSIUM 3.5 MMOL/L (3.6-5.0)
[2021-05-04 10:47] LABS: ALBUMIN 3.5 GM/DL (3.2-4.5); BILIRUBIN,TOTAL 0.3 MG/DL (0.1-1.0); CALCIUM 9.3 MG/DL (8.5-10.1); CREATININE SERUM 0.8 MG/DL (0.60-1.30); TOTAL PROTEIN 6.1 GM/DL (6.4-8.2)
== END 2021-06-10 | disposition home or self-care (01) ==
LOC: ONC 09:27
PROVIDERS: ATTEND Internal Medicine Hematology & Oncology
DX: Z45.2 Encounter for adjustment and management of vascular access device (principal); N93.9 Abnormal uterine and vaginal bleeding, unspecified; R93.89 Abnormal findings on diagnostic imaging of other specified body structures; Z85.3 Personal history of malignant neoplasm of breast; Z79.899 Other long term (current) drug therapy
CPT/HCPCS: 36591; 80053; 85025; 96523

== ENCOUNTER 2021-07-27 12:42 | Outpatient (RCR) | payer MEDICAID | END 2021-08-10 | disposition home or self-care (01) | LOC: ONC 12:42 | PROVIDERS: ATTEND Internal Medicine Hematology & Oncology | DX: Z45.2 Encounter for adjustment and management of vascular access device (principal); N93.9 Abnormal uterine and vaginal bleeding, unspecified; R93.89 Abnormal findings on diagnostic imaging of other specified body structures; Z85.3 Personal history of malignant neoplasm of breast; Z79.899 Other long term (current) drug therapy | CPT/HCPCS: 96523 ==

== ENCOUNTER 2021-10-12 08:50 | Outpatient (RCR) | payer MEDICAID ==
[~2021-10-12 08:50] MED LIST changes: -VENL150C PO; +VENL150C3 PO
[2021-10-12 09:12] LABS: BASOPHILS % (AUTO) 1 % (0-10); EOSINOPHILS # (AUTO) 0.1 10^3/uL (0.0-0.3); EOSINOPHILS % (AUTO) 1 % (0-10); HEMATOCRIT 41 % (35-52); LYMPHOCYTES # (AUTO) 1.2 10^3/uL (1.0-4.0); LYMPHOCYTES % (AUTO) 22 % (12-44); MEAN CORPUSCULAR HEMOGLOBIN 33 pg (25-34); MEAN CORPUSCULAR HGB CONC 35 g/dL (32-36); MEAN CORPUSCULAR VOLUME 94 fL (80-99); MEAN PLATELET VOLUME 8.9 fL (9.0-12.2); MONOCYTES # (AUTO) 0.4 10^3/uL (0.0-1.0); MONOCYTES % (AUTO) 8 % (0-12); NEUTROPHILS # (AUTO) 3.8 10^3/uL (1.8-7.8); NEUTROPHILS % (AUTO) 69 % (42-75); PLATELET COUNT 181 10^3/uL (130-400); WHITE BLOOD COUNT 5.5 10^3/uL (4.3-11.0)
[2021-10-12 09:32] LABS: ALBUMIN 3.8 GM/DL (3.2-4.5); BILIRUBIN,TOTAL 0.4 MG/DL (0.1-1.0); CALCIUM 8.5 MG/DL (8.5-10.1); CREATININE SERUM 0.74 MG/DL (0.60-1.30); POTASSIUM 3.8 MMOL/L (3.6-5.0); TOTAL PROTEIN 6.4 GM/DL (6.4-8.2)
== END 2021-11-07 | disposition home or self-care (01) ==
LOC: ONC 08:50
PROVIDERS: ATTEND Internal Medicine Hematology & Oncology
DX: C50.411 Malignant neoplasm of upper-outer quadrant of right female breast (principal); Z17.0 Estrogen receptor positive status [ER+]; K21.9 Gastro-esophageal reflux disease without esophagitis; F32.A Depression, unspecified; F41.9 Anxiety disorder, unspecified; Z92.21 Personal history of antineoplastic chemotherapy; Z79.818 Long term (current) use of other agents affecting estrogen receptors and estrogen levels
CPT/HCPCS: 80053; 85025

== ENCOUNTER 2022-01-12 14:38 | Outpatient (RCR) | payer MEDICAID | END 2022-02-07 | disposition home or self-care (01) | LOC: ONC 14:38 | PROVIDERS: ATTEND Internal Medicine Hematology & Oncology | DX: Z45.2 Encounter for adjustment and management of vascular access device (principal); N93.9 Abnormal uterine and vaginal bleeding, unspecified; R93.89 Abnormal findings on diagnostic imaging of other specified body structures; Z85.3 Personal history of malignant neoplasm of breast; Z79.899 Other long term (current) drug therapy | CPT/HCPCS: 96523 ==

== ENCOUNTER → 2022-04-12 | Outpatient (CLI) | payer MEDICAID ==
--- NOTE | 2022-04-12 15:52 | Diagnostic Imaging Report ---
INDICATION: Routine screening. COMPARISON: 04/29/2021 and 01/18/2020. TECHNIQUE: 2D and 3D bilateral screening mammography was performed with CAD. FINDINGS: Both breasts are heterogeneously dense, limiting the sensitivity of mammography. Post therapeutic changes in the right breast are again noted. The lumpectomy site appears stable. The lobulated mass in the outer left breast appears stable and does contain a biopsy marker clip. There also appears to be a clip in the medial left breast. No new mass is identified. No malignant-appearing microcalcifications are seen. The axillae are unremarkable. IMPRESSION: No mammographic features suspicious for malignancy are identified. ACR BI-RADS Category 2: Benign findings. Result letter will be mailed to the patient. Note: At least 10% of breast cancer is not imaged by mammography. Dictated by: Dictated on workstation # [id number]
== END ==
LOC: RAD 10:00
PROVIDERS: ATTEND Internal Medicine Hematology & Oncology
DX: Z12.31 Encounter for screening mammogram for malignant neoplasm of breast (principal)
CPT/HCPCS: 77063; 77067; G0463; 99213

== ENCOUNTER → 2022-05-10 | Outpatient (RCR) | payer MEDICAID ==
[2022-05-10 09:45] LABS: BASOPHILS % (AUTO) 1 % (0-10); EOSINOPHILS # (AUTO) 0.1 10^3/uL (0.0-0.3); EOSINOPHILS % (AUTO) 1 % (0-10); HEMATOCRIT 39 % (35-52); HEMOGLOBIN 13.8 g/dL (11.5-16.0); LYMPHOCYTES % (AUTO) 15 % (12-44); MEAN CORPUSCULAR HEMOGLOBIN 33 pg (25-34); MEAN CORPUSCULAR HGB CONC 35 g/dL (32-36); MEAN CORPUSCULAR VOLUME 93 fL (80-99); MONOCYTES # (AUTO) 0.3 10^3/uL (0.0-1.0); MONOCYTES % (AUTO) 5 % (0-12); NEUTROPHILS # (AUTO) 4.9 10^3/uL (1.8-7.8); NEUTROPHILS % (AUTO) 77 % (42-75); PLATELET COUNT 215 10^3/uL (130-400); WHITE BLOOD COUNT 6.4 10^3/uL (4.3-11.0)
[2022-05-10 10:00] LABS: ALBUMIN 3.6 GM/DL (3.2-4.5); BILIRUBIN,TOTAL 0.3 MG/DL (0.1-1.0); CALCIUM 8.7 MG/DL (8.5-10.1); CREATININE SERUM 0.72 MG/DL (0.60-1.30); TOTAL PROTEIN 6.3 GM/DL (6.4-8.2)
[2022-05-10 10:21] LABS: POTASSIUM 2.5 MMOL/L (3.6-5.0)
== END | disposition home or self-care (01) ==
LOC: ONC 04-12 09:09
PROVIDERS: ATTEND Internal Medicine Hematology & Oncology
DX: C50.411 Malignant neoplasm of upper-outer quadrant of right female breast (principal); N93.9 Abnormal uterine and vaginal bleeding, unspecified; R93.89 Abnormal findings on diagnostic imaging of other specified body structures; D50.9 Iron deficiency anemia, unspecified; Z79.899 Other long term (current) drug therapy; K21.9 Gastro-esophageal reflux disease without esophagitis; N95.1 Menopausal and female climacteric states; Z45.2 Encounter for adjustment and management of vascular access device
CPT/HCPCS: 36415; 80053; 85025; 96523; 99213

== ENCOUNTER 2022-07-22 16:20 | Outpatient (RCR) | payer MEDICAID | END 2022-08-10 | disposition home or self-care (01) | LOC: ONC 16:20 | PROVIDERS: ATTEND Internal Medicine Hematology & Oncology | DX: C50.411 Malignant neoplasm of upper-outer quadrant of right female breast (principal); N93.9 Abnormal uterine and vaginal bleeding, unspecified; R93.89 Abnormal findings on diagnostic imaging of other specified body structures; D50.9 Iron deficiency anemia, unspecified; Z79.899 Other long term (current) drug therapy; K21.9 Gastro-esophageal reflux disease without esophagitis; N95.1 Menopausal and female climacteric states ==

== ENCOUNTER → 2022-09-06 | Outpatient (CLI) | payer MEDICAID ==
--- NOTE | 2022-09-06 14:30 | Diagnostic Imaging Report ---
PROCEDURE: Pelvic comp/transvaginal sonogram. TECHNIQUE: Complete transabdominal and transvaginal pelvic ultrasound was performed. In addition, limited pelvic Doppler was performed. INDICATION: Abnormal uterine bleeding. FINDINGS: Uterus is anteverted measuring 11.9 x 7.2 x 9.8 cm. Endometrium is markedly thickened and heterogeneous measuring up to 3.1 cm. No definite abnormal vascularity is seen. Right ovary measures 3.7 x 2.3 x 2.1 cm and the left ovary measures 4.3 x 2.9 x 3.9 cm. Left ovary does contain a 2.9 x 2.7 x 3.4 cm cyst. There is blood flow to the ovaries. There is no free fluid. IMPRESSION: 1. Markedly thickened and heterogeneous endometrium. Endometrial neoplasm cannot be entirely excluded. 2. 3.4 cm left ovarian cyst. Dictated by: Dictated on workstation # [id number]
== END ==
LOC: RAD 14:00
PROVIDERS: ATTEND Nurse Practitioner Women's Health
DX: N83.202 Unspecified ovarian cyst, left side (principal); N85.8 Other specified noninflammatory disorders of uterus; N93.9 Abnormal uterine and vaginal bleeding, unspecified
CPT/HCPCS: 76830; 76856

== ENCOUNTER 2022-09-13 05:35 | Outpatient (CLI) | payer MEDICAID ==
[~2022-09-13] VITALS: Ht 170.1 cm; Wt 85.9 kg
== END 2022-09-13 12:33 | disposition home or self-care (01) ==
LOC: PREOP 05:35
PROVIDERS: ATTEND Obstetrics & Gynecology
DX: Z01.818 Encounter for other preprocedural examination (principal)

== ENCOUNTER 2022-09-14 10:08 | Day surgery (SDC) | payer MEDICAID ==
[2022-09-14] VITALS (11 sets, daily range): BP systolic 129–161; BP diastolic 96–111
[~2022-09-14] VITALS: Ht 170.1 cm; Wt 85.9 kg
[2022-09-14] MEDS ORDERED: LACTATED RINGERS 1,000 ML IV PRN (10:15)
[2022-09-14 10:50] LABS: BASOPHILS % (AUTO) 1 % (0-10); EOSINOPHILS # (AUTO) 0.1 10^3/uL (0.0-0.3); EOSINOPHILS % (AUTO) 1 % (0-10); HEMATOCRIT 39 % (35-52); HEMOGLOBIN 13.6 g/dL (11.5-16.0); LYMPHOCYTES % (AUTO) 13 % (12-44); MEAN CORPUSCULAR HEMOGLOBIN 33 pg (25-34); MEAN CORPUSCULAR HGB CONC 35 g/dL (32-36); MEAN CORPUSCULAR VOLUME 93 fL (80-99); MEAN PLATELET VOLUME 9.1 fL (9.0-12.2); MONOCYTES # (AUTO) 0.5 10^3/uL (0.0-1.0); MONOCYTES % (AUTO) 7 % (0-12); NEUTROPHILS # (AUTO) 6.2 10^3/uL (1.8-7.8); NEUTROPHILS % (AUTO) 79 % (42-75); PLATELET COUNT 194 10^3/uL (130-400); WHITE BLOOD COUNT 7.9 10^3/uL (4.3-11.0)
--- NOTE | 2022-09-14 11:17 | Progress Note-Pre Operative ---
Pre-Operative Progress Note Date of Available H&P: Sep 14, 2022 Date H&P Reviewed: Sep 14, 2022 Time H&P Reviewed: 11:15 History & Physical: H&P Reviewed, Patient Examed, No changes noted Pre-Operative Diagnosis: 46 yo w/ AUB, Hx of Tamoxifen use, thickened endome trium DAE HOWARD DO Sep 14, 2022 11:17
--- NOTE | 2022-09-14 11:19 | Discharge Inst-Women's Service ---
Discharge Inst-Women's Serv Depart Medication/Instructions New, Converted or Re-Newed RX: Transmitted to Pharmacy Problems Reviewed?: Yes Consults/Follow Up Additional Follow Up: Yes Orders/Referrals Dr. Howard/Edel in 2 weeks Activity Activity: Activity as Tolerated Driving Instructions: No Driving for 1 Week NO SMOKING: NO SMOKING Nothing Inside Vagina: No Douching, No [place], No Tampons Diet Discharge Diet: No Restrictions Symptoms to Report to : Bleeding Excessive, Pain Increased, Fever Over 101 Degrees F, Vaginal Bleeding Increase, Questions/Concerns For Any Problems or Questions: Contact Your Physician DAE HOWARD DO Sep 14, 2022 11:19
[2022-09-14] MEDS ORDERED: D5 LR IV SOLUTION 1,000 ML IV SCH (11:30)
[2022-09-14] MEDS ORDERED: HYDROcodone/APAP 5 MG/325 MG (LORTAB) TAB PO PRN (11:30)
[2022-09-14] MEDS ORDERED: KETOROLAC 30 MG/ML VIAL IVP ONE ×2 (11:30→13:15)
[2022-09-14] MEDS ORDERED: ONDANSETRON 4 MG/2 ML (SDV) Z0FRAN IVP PRN ×2 (11:30→13:15)
[2022-09-14] MEDS ORDERED: BUPIVACAINE 0.25% 30 ML (SENSORCAINE) VIAL ONE (12:00)
[2022-09-14] MEDS ORDERED: fentaNYL INJ 100 MCG/2 ML AMP ONE (12:31)
[2022-09-14] MEDS ORDERED: MIDAZOLAM 2 MG/2 ML (VERSED) VIAL ONE ×2 (12:32→12:44)
[2022-09-14] MEDS ORDERED: LIDOCAINE PF 2% 5 ML (XYLOCAINE) VIAL ONE (12:50)
[2022-09-14] MEDS ORDERED: SEVOFLURANE (ULTANE) 15 ML INHAL SOLN ONE (12:50)
[2022-09-14] MEDS ORDERED: ONDANSETRON 4 MG/2 ML (SDV) Z0FRAN ONE (12:50)
[2022-09-14] MEDS ORDERED: proPOfol 200 MG/20 ML (DIPRIVAN) VIAL IV ONE (12:50)
[2022-09-14] MEDS ORDERED: BUPIVACAINE 0.25% 30 ML (SENSORCAINE) VIAL IJ ONE (13:03)
--- NOTE | 2022-09-14 13:04 | Anesthesia-General Post-Op ---
General Patient Condition Mental Status/LOC: Same as Preop Cardiovascular: Satisfactory Nausea/Vomiting: Absent Respiratory: Satisfactory Pain: Controlled Complications: Absent Post Op Complications Complications None Follow Up Care/Instructions Patient Instructions None needed. Anesthesia/Patient Condition Patient Condition Patient is doing well, no complaints, stable vital signs, no apparent adverse anesthesia problems. No complications reported per nursing. RADHA WYATT CRNA Sep 14, 2022 13:04
[2022-09-14] MEDS ORDERED: LABETALOL HCL 20 MG/4 ML VIAL ONE (13:05)
[2022-09-14] MEDS: LABETALOL HCL 20 MG/4 ML VIAL INJ PRN ×2 (13:10→13:23)
[2022-09-14] MEDS ORDERED: morphine INJ 10 MG/ML 1ML (SYR OR VIAL) IVP ONE (13:15)
[2022-09-14] MEDS ORDERED: MEPERIDINE (DEMEROL) INJ 50 MG/ML IVP ONE (13:15)
--- NOTE | 2022-09-14 17:59 | OPERATIVE REPORT ---
DATE OF SERVICE: 09/14/2022 PREOPERATIVE DIAGNOSES: 1. A 46-year-old female with abnormal uterine bleeding. 2. Long-term use of tamoxifen. 3. History of breast cancer. POSTOPERATIVE DIAGNOSES: 1. A 46-year-old female with abnormal uterine bleeding. 2. Long-term use of tamoxifen. 3. History of breast cancer. PROCEDURE: D and C. SURGEON: Dae Howard DO ANESTHESIA: LMA general. ESTIMATED BLOOD LOSS: Minimal. URINE OUTPUT: 100 mL drained at the end of the procedure. FLUIDS: 800 mL lactated Ringer's solution. FINDINGS: A normal-appearing external female genitalia with a grade III rectocele. Copious amount of endometrial tissue collected on curetting. SPECIMEN SENT: Endometrial curettings. INDICATIONS FOR PROCEDURE: This 46-year-old female was a patient who had sought care for abnormal uterine bleeding. She has had a thickened endometrium noted on ultrasound and long-term use of tamoxifen, unopposed by progesterone due to breast cancer. We discussed with the patient proceeding with endometrial sampling due to the high risk for endometrial hyperplasia and carcinoma. Risks of procedure discussed with the patient in detail and after all of her questions were answered, consent was obtained, the patient was taken to the operating room. OPERATIVE REPORT IN DETAIL: Once in the operating room, anesthesia was administered and found to be adequate, was placed in dorsal lithotomy position, prepped and draped in normal sterile fashion where a timeout was performed. A weighted speculum inserted to the patient's vagina where the bladder was then drained using straight catheterization. A right angle retractor was used to visualize the cervix, was grasped at 12 o'clock position using a long Allis clamp. I then proceeded with performing a paracervical block at 3 and 9 o'clock positions on the cervix. Care was taken to aspirate for injecting 5 mL of 0.25% Marcaine injected into each site. I then gently sound the uterine cavity depth was found to be 8 cm. I then gently dilated the cervix using Hanks dilators to maximum dilatation approximately 1 cm, at which point I performed a gentle curettage of the endometrium, collecting all the endometrial tissue together and sent them as endometrial curettings. Copious amount of endometrial tissue was collected in the process of doing this. I then removed all instruments from the patient's vagina and there is no active bleeding noted from the cervix, lap and sponge counts were correct at the end of the procedure. Instrument counts correct as well. Job ID: [id number] DocumentID: [id number] Dictated Date: 09/14/2022 13:09:39 Underground Repairer Date: 09/14/2022 17:58:00 Dictated By: DAE HOWARD DO
== END 2022-09-14 14:57 | disposition home or self-care (01) ==
LOC: SDC 10:08
PROVIDERS: ATTEND Obstetrics & Gynecology
DX: N84.0 Polyp of corpus uteri (principal); N81.6 Rectocele; N93.9 Abnormal uterine and vaginal bleeding, unspecified; E66.9 Obesity, unspecified; Z68.30 Body mass index [BMI] 30.0-30.9, adult; Z85.3 Personal history of malignant neoplasm of breast; Z79.810 Long term (current) use of selective estrogen receptor modulators (SERMs)
CPT/HCPCS: 36415; 84703; 85025; 86850; 86900; 86901; 87081

== ENCOUNTER 2022-11-03 14:44 | Outpatient (RCR) | payer MEDICAID ==
[~2022-11-03 14:44] MED LIST changes: -DOCU100C37 PO; -HYDR-34 PO; -IBUP-844 PO; -MULT-221 PO; -SIME80TA16 PO
[2022-11-16] MEDS ORDERED: IBUP-844 PO (07:42)
[2022-11-16] MEDS ORDERED: DOCU100C37 PO (07:42)
[2022-11-16] MEDS ORDERED: SIME80TA16 PO (07:42)
[2022-11-16] MEDS ORDERED: HYDR-34 PO (07:42)
== END 2022-11-07 | disposition home or self-care (01) ==
LOC: ONC 14:44
PROVIDERS: ATTEND Internal Medicine Hematology & Oncology
DX: C50.411 Malignant neoplasm of upper-outer quadrant of right female breast (principal); N93.9 Abnormal uterine and vaginal bleeding, unspecified; R93.89 Abnormal findings on diagnostic imaging of other specified body structures; D50.9 Iron deficiency anemia, unspecified; Z79.899 Other long term (current) drug therapy; K21.9 Gastro-esophageal reflux disease without esophagitis; N95.1 Menopausal and female climacteric states
CPT/HCPCS: 36591

== ENCOUNTER → 2022-11-03 | Outpatient (CLI) | payer MEDICAID ==
[~2022-11-03] MED LIST changes: +DOCU100C37 PO; +HYDR-34 PO; +IBUP-844 PO; +MULT-221 PO; +SIME80TA16 PO
[2022-11-03 15:24] LABS: BASOPHILS # (AUTO) 0.1 10^3/uL (0.0-0.1); BASOPHILS % (AUTO) 1 % (0-10); EOSINOPHILS # (AUTO) 0.2 10^3/uL (0.0-0.3); EOSINOPHILS % (AUTO) 2 % (0-10); HEMATOCRIT 39 % (35-52); HEMOGLOBIN 13.1 g/dL (11.5-16.0); LYMPHOCYTES # (AUTO) 1.3 10^3/uL (1.0-4.0); LYMPHOCYTES % (AUTO) 14 % (12-44); MEAN CORPUSCULAR HEMOGLOBIN 33 pg (25-34); MEAN CORPUSCULAR HGB CONC 34 g/dL (32-36); MEAN CORPUSCULAR VOLUME 97 fL (80-99); MEAN PLATELET VOLUME 9.4 fL (9.0-12.2); MONOCYTES # (AUTO) 0.6 10^3/uL (0.0-1.0); MONOCYTES % (AUTO) 7 % (0-12); NEUTROPHILS # (AUTO) 6.9 10^3/uL (1.8-7.8); NEUTROPHILS % (AUTO) 76 % (42-75); PLATELET COUNT 219 10^3/uL (130-400); WHITE BLOOD COUNT 9.1 10^3/uL (4.3-11.0)
[2022-11-03 15:42] LABS: ALBUMIN 3.8 GM/DL (3.2-4.5); BILIRUBIN,TOTAL 0.2 MG/DL (0.1-1.0); CALCIUM 9.7 MG/DL (8.5-10.1); CREATININE SERUM 0.74 MG/DL (0.60-1.30); POTASSIUM 3.8 MMOL/L (3.6-5.0); TOTAL PROTEIN 6.5 GM/DL (6.4-8.2)
== END ==
LOC: LABNPT 15:00
PROVIDERS: ATTEND Internal Medicine Hematology & Oncology
DX: C50.419 Malignant neoplasm of upper-outer quadrant of unspecified female breast (principal); R22.1 Localized swelling, mass and lump, neck
CPT/HCPCS: 80053; 85025

== ENCOUNTER 2022-11-12 05:34 | Outpatient (CLI) | payer MEDICAID ==
[~2022-11-12] VITALS: Ht 170.2 cm; Wt 85.5 kg
[2022-11-12] MEDS ORDERED: MULT-221 PO (12:55)
[2022-11-16] MEDS ORDERED: DOCU100C37 PO (07:42)
[2022-11-16] MEDS ORDERED: SIME80TA16 PO (07:42)
[2022-11-16] MEDS ORDERED: HYDR-34 PO (07:42)
[2022-11-16] MEDS ORDERED: IBUP-844 PO (07:42)
== END 2022-11-12 13:23 | disposition home or self-care (01) ==
LOC: PREOP 05:34
PROVIDERS: ATTEND Obstetrics & Gynecology
DX: Z01.818 Encounter for other preprocedural examination (principal)

== ENCOUNTER 2022-11-16 06:38 | Day surgery (SDC) | payer MEDICAID ==
[~2022-11-16] VITALS: Ht 170 cm; Wt 85.5 kg
[2022-11-16] VITALS (10 sets, daily range): BP systolic 113–145; BP diastolic 63–111
[~2022-11-16 06:38] MED LIST changes: +MULT-221 PO
[2022-11-16] MEDS ORDERED: metroNIDAZOLE 500MG/100ML IVPB 100 ML IV ONE (06:45)
[2022-11-16] MEDS ORDERED: ceFAZolin INJECTION 2,000 MG in NS (IVPB) 50 ML IV ONE (06:45)
[2022-11-16 07:10] LABS: BASOPHILS % (AUTO) 0 % (0-10); EOSINOPHILS # (AUTO) 0.2 10^3/uL (0.0-0.3); EOSINOPHILS % (AUTO) 3 % (0-10); HEMATOCRIT 39 % (35-52); HEMOGLOBIN 13.2 g/dL (11.5-16.0); LYMPHOCYTES # (AUTO) 0.8 10^3/uL (1.0-4.0); LYMPHOCYTES % (AUTO) 15 % (12-44); MEAN CORPUSCULAR HEMOGLOBIN 32 pg (25-34); MEAN CORPUSCULAR HGB CONC 34 g/dL (32-36); MEAN CORPUSCULAR VOLUME 96 fL (80-99); MEAN PLATELET VOLUME 9.4 fL (9.0-12.2); MONOCYTES # (AUTO) 0.4 10^3/uL (0.0-1.0); MONOCYTES % (AUTO) 6 % (0-12); NEUTROPHILS # (AUTO) 4.2 10^3/uL (1.8-7.8); NEUTROPHILS % (AUTO) 75 % (42-75); PLATELET COUNT 221 10^3/uL (130-400); WHITE BLOOD COUNT 5.7 10^3/uL (4.3-11.0)
[2022-11-16] MEDS ORDERED: fentaNYL INJ 100 MCG/2 ML AMP ONE (07:12)
[2022-11-16] MEDS ORDERED: MIDAZOLAM 2 MG/2 ML (VERSED) VIAL ONE (07:12)
[2022-11-16] MEDS ORDERED: ONDANSETRON 4 MG/2 ML (SDV) Z0FRAN ONE (07:12)
[2022-11-16] MEDS ORDERED: ROCURONIUM 50 MG/5 ML (ZEMURON) VIAL IV ONE (07:12)
[2022-11-16] MEDS ORDERED: GLYCOPYRROLATE 0.2 MG/ML (ROBINUL) 2 ML VIAL ONE (07:12)
[2022-11-16] MEDS ORDERED: LIDOCAINE PF 2% 5 ML (XYLOCAINE) VIAL ONE (07:12)
[2022-11-16] MEDS ORDERED: NEOSTIGMINE (BLOXIVERZ ) 1 MG/1ML 10 ML VIAL ONE (07:12)
[2022-11-16] MEDS ORDERED: proPOfol 200 MG/20 ML (DIPRIVAN) VIAL IV ONE (07:12)
[2022-11-16] MEDS: LACTATED RINGERS 1,000 ML IV PRN ×2 (07:14→08:30)
[2022-11-16] MEDS ORDERED: BUPIVACAINE 0.25% 30 ML (SENSORCAINE) VIAL ONE (07:17)
[2022-11-16] MEDS ORDERED: BUPIVACAINE 0.25% 30 ML (SENSORCAINE) VIAL INJ ONE (07:30)
--- NOTE | 2022-11-16 07:37 | Progress Note-Pre Operative ---
Pre-Operative Progress Note Date of Available H&P: November 16, 2022 Date H&P Reviewed: November 16, 2022 Time H&P Reviewed: 07:15 History & Physical: H&P Reviewed, Patient Examed, No changes noted Pre-Operative Diagnosis: AUB, Tamoxifen use, Hx Breast Ca DAE HOWARD DO November 16, 2022 07:37
--- NOTE | 2022-11-16 07:41 | Discharge Inst-Women's Service ---
Discharge Inst-Women's Serv Depart Medication/Instructions New, Converted or Re-Newed RX: Transmitted to Pharmacy Problems Reviewed?: Yes Consults/Follow Up Additional Follow Up: Yes Orders/Referrals Dr. Woodruff in 7-10 days and in 8 weeks Activity Activity: Activity as Tolerated Driving Instructions: No Driving for 1 Week NO SMOKING: NO SMOKING Nothing Inside Vagina: No Douching, No [place], No Tampons Diet Discharge Diet: No Restrictions Symptoms to Report to : Bleeding Excessive, Pain Increased, Fever Over 101 Degrees F, Vaginal Bleeding Increase, Questions/Concerns For Any Problems or Questions: Contact Your Physician Skin/Wound Care Infection Signs and Symptoms: Increased Redness, Foul Odor of Wound, Increased Drainage, Skin Itchy or Has a Rash, Increased Swelling, Temperature Above 101 F Operative Area Clean and Dry: Keep Incision Clean/Dry Stitches/[place]livia/Dermabond: Dermabond, Care of Stitches Bathing Instructions: DAE Goyal DO November 16, 2022 07:41
[2022-11-16] MEDS ORDERED: IBUP-844 PO (07:42)
[2022-11-16] MEDS ORDERED: SIME80TA16 PO (07:42)
[2022-11-16] MEDS ORDERED: HYDR-34 PO (07:42)
[2022-11-16] MEDS ORDERED: DOCU100C37 PO (07:42)
[2022-11-16] MEDS ORDERED: HYDROcodone/APAP 7.5 MG/325 MG (LORTAB, LORCET PLUS) TABLET PO PRN (07:45)
[2022-11-16] MEDS ORDERED: KETOROLAC 30 MG/ML VIAL IVP PRN (07:45)
[2022-11-16] MEDS ORDERED: SIMETHICONE 80 MG (MYLICON) CHEW PO PRN (07:45)
[2022-11-16] MEDS ORDERED: ONDANSETRON 4 MG/2 ML (SDV) Z0FRAN IV PRN (07:45)
[2022-11-16] MEDS ORDERED: IBUPROFEN 600 MG (MOTRIN) TAB PO PRN (07:45)
[2022-11-16] MEDS ORDERED: ZOLPIDEM 5 MG (AMBIEN) TAB PO PRN (07:45)
[2022-11-16] MEDS ORDERED: ANTACID SUSP 30 ML UDC (MYLANTA) PO PRN (07:45)
[2022-11-16] MEDS ORDERED: DOCUSATE SODIUM 100 MG (COLACE) CAP PO PRN (07:45)
[2022-11-16] MEDS ORDERED: BENZOCAINE LOZENGES 1 EACH LOZENGE MM PRN (07:45)
[2022-11-16] MEDS ORDERED: PHENYLEPHRINE 100 MCG/ML 10 ML (ANESTHESIA) SYR ONE (07:59)
[2022-11-16] MEDS ORDERED: SEVOFLURANE (ULTANE) 15 ML INHAL SOLN ONE (09:14)
[2022-11-16] MEDS ORDERED: KETOROLAC 30 MG/ML VIAL ONE (09:45)
[2022-11-16] MEDS ORDERED: HYDROmorphone 2 MG/ML VIAL (DILAUDID) IV ONE (09:45)
[2022-11-16] MEDS ORDERED: ONDANSETRON 4 MG/2 ML (SDV) Z0FRAN IVP PRN (09:45)
[2022-11-16] MEDS ORDERED: morphine INJ 10 MG/ML 1ML (SYR OR VIAL) IVP ONE (09:45)
[2022-11-16] MEDS ORDERED: morphine INJ 10 MG/ML 1ML (SYR OR VIAL) ONE (09:45)
[2022-11-16] MEDS: LACTATED RINGERS 1,000 ML IV SCH ×2 (09:54→11:26)
[2022-11-16] MEDS ORDERED: HYDROmorphone 2 MG/ML VIAL (DILAUDID) IV PRN (10:45)
--- NOTE | 2022-11-16 10:51 | Anesthesia-General Post-Op ---
General Patient Condition Mental Status/LOC: Same as Preop Cardiovascular: Satisfactory Nausea/Vomiting: Absent Respiratory: Satisfactory Pain: Controlled Complications: Absent Post Op Complications Complications None Follow Up Care/Instructions Patient Instructions None needed. Anesthesia/Patient Condition Patient Condition Patient was doing well in PACU with no complaints, stable vital signs, no apparent adverse anesthesia problems. No complications reported per nursing. PAVAN YOUSSEF DO November 16, 2022 10:51
--- NOTE | 2022-11-16 19:24 | OPERATIVE REPORT ---
DATE OF SERVICE: 11/16/2022 PREOPERATIVE DIAGNOSES: 1. A 46-year-old female with abnormal uterine bleeding. 2. History of breast cancer. 3. Prolonged tamoxifen use. POSTOPERATIVE DIAGNOSES: 1. A 46-year-old female with abnormal uterine bleeding. 2. History of breast cancer. 3. Prolonged tamoxifen use. PROCEDURE: Robotic-assisted total laparoscopic hysterectomy with bilateral salpingectomy, weighing more than 450 grams. SURGEON: Warren Howard DO CLAIMS SUPERVISOR: Edel Abreu DNP was necessary for manipulation and retraction throughout the procedure. ANESTHESIA: General endotracheal. ESTIMATED BLOOD LOSS: Minimal. URINE OUTPUT: 50 mL clear at the end of the procedure. FLUIDS: 1500 mL lactated Ringer's solution. FINDINGS: A bulky and hyperemic-appearing uterus, grossly normal-appearing bilateral ovaries. Grossly normal appearing bilateral fallopian tubes. SPECIMEN SENT: Uterus, cervix and bilateral fallopian tubes. INDICATIONS FOR PROCEDURE: This 46-year-old female patient had sought care in my office for ongoing issues of recurrent abnormal uterine bleeding. She has been on tamoxifen use due to breast cancer. She underwent D and C earlier in the year and this did not alleviate her problems. In fact, she began bleeding again heavily not too long after her D and C. Risk of hysterectomy discussed with the patient in detail including risk of bleeding, infection, damage to surrounding structures including but not limited to bowel, bladder, ureter, kidneys, possible need for reoperation, postoperative complications that may occur, recovery timeframe and even . We also discussed removal of the ovaries; however, leaving them behind. At this point, we would avoid any exogenous hormone use, which the patient is not a candidate for due to her breast cancer, history of tamoxifen use. She was agreeable to leave the ovaries if they appeared normal, which they did. Once all the patient's questions were answered, consent was obtained, the patient was taken to the operating room. OPERATIVE DESCRIPTION IN DETAIL Once in the operating room, general anesthesia was administered and found to be adequate, was placed in dorsal lithotomy position, prepped and draped in normal sterile fashion. A timeout was performed. A Lin catheter was placed using sterile technique. A weighted speculum inserted to the patient's vagina. Right angle retractor was used to visualize the cervix. An 0 Vicryl suture was then placed on the anterior lip of the cervix and the sutures was used for my retraction. I then gently sound the uterine cavity depth was found to be 10 cm. I selected an 8 LUCIAN uterine manipulator tip and a 4 cm colpotomy ring advanced the manipulator tip into the uterus where I deployed the balloon and advanced colpotomy ring around the vaginal fornix, after which excellent manipulation is noted on bimanual examination. I then removed all the other instruments from the patient's vagina, performed change of gloves. I turned my attention to the abdomen where subcostally at the midclavicular line on the left side, I introduced the Veress needle through the skin for placement confirmed using a saline drop test and opening pressure of 6 mmHg was noted. I proceeded with CO2 insufflation to max pressure of 15 mmHg, at which point I make a supraumbilical incision 8 mm incision with a knife and directed blunt laparoscopic da Camelia camera trocar through the incision to ensure placement confirmed using the laparoscope. There was no evidence of damage from entry site. A brief scan of the upper abdominal anatomy appears to be grossly normal. The Veress site was without evidence of injury and the Veress was removed at that point. I then had the patient placed in steep Trendelenburg and I am able to visualize all my pelvic anatomy as defined in my findings above. I placed 2 lateral trocars using both 8 mm trocars were placed approximately 8 cm lateral to my supraumbilical trocar. Once both these trocars were in place, I bring in the da Camelia robot docked in appropriate fashion, placing the SynchroSeal device in left hand and monopolar ta in the right hand. I took my place at the da Camelia operative console and performed the following dissection bilaterally. Starting at the uteroovarian ligament, I sealed and transected using a SynchroSeal device. I then created a window in the mesosalpinx, took this laterally down the mesosalpinx amputating the fallopian tube from its surrounding blood supply. I then sealed and transect the round ligament using a SynchroSeal device. This allows me to seal and transect the broad ligament with one bite and I do this down to the level of the lower uterine segment, at which point I the anterior and posterior leaflets of the broad ligament. Anterior leaflet was taken to the anterior vaginal fornix. The posterior leaf was taken around the posterior vaginal fornix. This allows me to skeletonize the uterine vessels laterally, which I sealed and transected using the SynchroSeal device. I then created a colpotomy at 12 o'clock position using monopolar ta and take circumferentially around the vaginal fornix amputating the cervix away from the vagina. The entire specimen was then removed through the vagina. I then closed the vaginal cuff using 2-0 V-Loc in a running fashion, after which there was active bleeding noted from a dissection planes. I then undocked da Camelia robot and proceeded with remainder of case laparoscopically. Again, I copiously irrigated the pelvis using normal saline. Once again, there was no active bleeding noted from the dissection planes. Bilateral ureteral peristalsis is appreciated bilaterally and the ureters are free of my dissection planes. I then covered the planes of dissection using Surgiflo hemostatic agent to ensure excellent postoperative hemostasis. The patient was taken out of steep Trendelenburg where I removed the lateral trocars under direct visualization, laparoscope. The infraumbilical trocars left in place to release the remainder of insufflation and to introduce 10 mL of 0.25% Marcaine in the peritoneal cavity for postoperative pain management. I then removed this trocar as well. The skin reapproximated using 4-0 Monocryl and interrupted subcuticular stitches. Dermabond was applied to the incisions and Band-Aids were placed over the incisions as well. The patient tolerated the procedure well and was taken to recovery in stable condition. Lap and sponge counts were correct at the end of the procedure. Instrument counts correct as well. Two grams of Ancef and 500 mg of Flagyl were given preoperatively for infection prophylaxis. Job ID: [id number] DocumentID: [id number] Dictated Date: 11/16/2022 10:42:58 Hvac Instructor Date: 11/16/2022 19:21:00 Dictated By: WARREN HOWARD DO
== END 2022-11-16 15:45 ==
LOC: SDC 06:38 → WS 10:15 → SDC 15:45
PROVIDERS: ATTEND Obstetrics & Gynecology
DX: D25.9 Leiomyoma of uterus, unspecified (principal); N93.9 Abnormal uterine and vaginal bleeding, unspecified; N80.203 Endometriosis of bilateral fallopian tubes, unspecified depth; Z85.3 Personal history of malignant neoplasm of breast; Z79.810 Long term (current) use of selective estrogen receptor modulators (SERMs)
CPT/HCPCS: 36415; 84703; 85025; 86850; 86900; 86901; 87081; 88307

== ENCOUNTER 2022-12-21 09:49 | Emergency (ER) | payer MEDICAID ==
[~2022-12-21] VITALS: Ht 170.1 cm; Wt 85.5 kg
[~2022-12-21 09:49] MED LIST changes: +DOCU100C37 PO; +HYDR-34 PO; +IBUP-844 PO; +SIME80TA16 PO
--- NOTE | 2022-12-21 10:44 | ED Syncope ---
General Chief Complaint: Dizziness/Syncope Stated Complaint: SOB | LIGHTHEADED | POST OP 4 WKS Source of Information: Patient Exam Limitations: No Limitations History of Present Illness Date Seen by Provider: Dec 21, 2022 Time Seen by Provider: 09:50 Initial Comments 47-year-old female with past medical history most notable for hypertension, previous breast cancer, and relatively recent partial hysterectomy coming in due to a syncopal episode. She had a syncopal episode a couple weeks ago in which her caught her, and yesterday she was taking a shower, reached her hands above her head, and passed out. She is unsure if she hit her head, but does not have any headache, no neck or back pain, no weakness or numbness. Has felt normal since then. Denies any chest pain, shortness of breath, abdominal pain, nausea, vomiting, diarrhea, or any other concerns. Denies any cardiac history, no history of DVT or PE, no lower extremity swelling or pain, no hemoptysis. Allergies and Home Medications Allergies Coded Allergies: No Known Drug Allergies (Unverified , 09/13/22) Patient Home Medication List Home Medication List Reviewed: Yes Docusate Sodium (Docusate Sodium) 100 Mg Capsule, 100 MG PO BID PRN for CONSTIPATION-1ST LINE Prescribed by: DAE HOWARD on 11/16/22 0742 Hydrocodone Bit/Acetaminophen (HYDROcodone/APAP 7.5/325 TAB) 1 Ea Tablet, 1-2 EA PO Q6HR PRN for PAIN-MODERATE (5-7) Prescribed by: DAE HOWARD on 11/16/22 0742 Ibuprofen (Ibu) 600 Mg Tablet, 600 MG PO Q6HR PRN for PAIN-MILD (1-4) Prescribed by: DAE HOWARD on 11/16/22 0742 Lisinopril (Lisinopril) 20 Mg Tablet, 20 MG PO DAILY, (Reported) Entered as Reported by: MOHIT VALENZUELA on 02/01/20 1221 Multivitamin (One-A-Day Essential) 1 Each Tablet, 1 EACH PO DAILY, (Reported) Entered as Reported by: Miranda Bernard on 11/12/22 1255 Simethicone (Simethicone) 80 Mg Tab.chew, 40 MG PO TID PRN for INDIGESTION 2ND LINE Prescribed by: DAE HOWARD on 11/16/22 0742 Tamoxifen Citrate (Tamoxifen Citrate) 20 Mg Tablet, 20 MG PO, (Reported) Entered as Reported by: CASIE MCCORD on 03/30/21 0925 Review of Systems Constitutional: No fever EENTM: no symptoms reported Respiratory: no symptoms reported Cardiovascular: see HPI Gastrointestinal: no symptoms reported Genitourinary: no symptoms reported Musculoskeletal: no symptoms reported Skin: no symptoms reported Psychiatric/Neurological: No Symptoms Reported Past Ximjdez-Ihkryx-Yuthlz Hx Patient Social History Tobacco Use?: No Immunizations Up To Date Tetanus Booster (TDap): More than 5yrs First/Initial COVID19 Vaccinat: 07/31 Second COVID19 Vaccination Daniel: 08/31 Third COVID19 Vaccination Date: 07/31 Seasonal Allergies Seasonal Allergies: No Past Medical History Surgeries: Yes (D&C, PORT) Adenoidectomy, Lumpectomy, Tonsillectomy Respiratory: No Currently Using CPAP: No Currently Using BIPAP: No Cardiac: Yes Hypertension Neurological: Yes (SEIZURES DUE TO A MEDICATION, LAST IN 2015) Seizure Disorder Female Reproductive Disorders: Menstrual Problems 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 Sexually Transmitted Disease: No HIV/AIDS: No Genitourinary: No Gastrointestinal: Yes Gastroesophageal Reflux Musculoskeletal: No Endocrine: No HEENT: Yes Tonsilitis Loss of Vision: Denies Hearing Impairment: Denies Cancer: Yes Breast Did You Recieve Any Treatments: Yes What Type of Treatment Did You: Chemotherapy, Radiation, Surgical Intervention Psychosocial: Yes Anxiety, Depression Integumentary: No Blood Disorders: No Adverse Reaction/Blood Tranf: No Physical Exam Vital Signs Vital Signs - First Documented 12/21/22 10:12 Temp 36.4 Pulse 97 Resp 12 B/P (MAP) 121/87 (98) Pulse Ox 98 O2 Delivery Room Air Capillary Refill : Height, Weight, BMI Height: '" Weight: lbs. oz. kg; 29.58 BMI Method: General Appearance: No Apparent Distress, WD/WN HEENT: PERRL/EOMI, Normal ENT Inspection, Pharynx Normal Neck: Full Range of Motion, Normal Inspection, Non Tender, Supple Cardiovascular: Regular Rate, Rhythm, No Edema, Normal Peripheral Pulses Respiratory: Chest Non Tender, Lungs Clear, Normal Breath Sounds, No Accessory Muscle Use, No Respiratory Distress Gastrointestinal: Normal Bowel Sounds, Non Tender, Soft; No Distended, No Guarding Back: Normal Inspection, No CVA Tenderness, No Vertebral Tenderness Extremities: Normal Capillary Refill, Normal Inspection, Normal Range of Motion, Non Tender, No Calf Tenderness, No Pedal Edema Neurologic/Psychiatric: Alert, Oriented x3, No Motor/Sensory Deficits, Normal 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, 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 Norm as Tested Cranial Nerves: Normal Hearing, Normal Speech, PERRL Coordination/Gait: Normal Gait Motor/Sensory: No Motor Deficit, No Sensory Deficit Skin: Normal Color, Warm/Dry Progress/Results/Core Measures Results/Orders Lab Results Laboratory Tests Test 12/21/22 10:25 Range/Units White Blood Count 7.0 4.3-11.0 10^3/uL Red Blood Count 4.39 3.80-5.11 10^6/uL Hemoglobin 13.7 11.5-16.0 g/dL Hematocrit 41 35-52 % Mean Corpuscular Volume 94 80-99 fL Mean Corpuscular Hemoglobin 31 25-34 pg Mean Corpuscular Hemoglobin Concent 33 32-36 g/dL Red Cell Distribution Width 13.7 10.0-14.5 % Platelet Count 256 130-400 10^3/uL Mean Platelet Volume 9.4 9.0-12.2 fL Immature Granulocyte % (Auto) 0 % Neutrophils (%) (Auto) 70 42-75 % Lymphocytes (%) (Auto) 19 12-44 % Monocytes (%) (Auto) 7 0-12 % Eosinophils (%) (Auto) 3 0-10 % Basophils (%) (Auto) 1 0-10 % Neutrophils # (Auto) 4.9 1.8-7.8 10^3/uL Lymphocytes # (Auto) 1.3 1.0-4.0 10^3/uL Monocytes # (Auto) 0.5 0.0-1.0 10^3/uL Eosinophils # (Auto) 0.2 0.0-0.3 10^3/uL Basophils # (Auto) 0.1 0.0-0.1 10^3/uL Immature Granulocyte # (Auto) 0.0 0.0-0.1 10^3/uL Prothrombin Time 13.2 12.2-14.7 SEC INR Comment 1.0 0.8-1.4 Activated Partial Thromboplast Time 27 24-35 SEC D-Dimer 0.49 0.00-0.49 UG/ML Sodium Level 137 135-145 MMOL/L Potassium Level 4.2 3.6-5.0 MMOL/L Chloride Level 107 98-107 MMOL/L Carbon Dioxide Level 19 L 21-32 MMOL/L Anion Gap 11 5-14 MMOL/L Blood Urea Nitrogen 13 7-18 MG/DL Creatinine 0.81 0.60-1.30 MG/DL Estimat Glomerular Filtration Rate 91 BUN/Creatinine Ratio 16 Glucose Level 108 H 70-105 MG/DL Calcium Level 9.7 8.5-10.1 MG/DL Corrected Calcium 9.7 8.5-10.1 MG/DL Magnesium Level 1.9 1.6-2.4 MG/DL Total Bilirubin 0.5 0.1-1.0 MG/DL Aspartate Amino Transf (AST/SGOT) 34 5-34 U/L Alanine Aminotransferase (ALT/SGPT) 34 0-55 U/L Alkaline Phosphatase 109 40-136 U/L Troponin I < 0.028 <0.028 NG/ML B-Type Natriuretic Peptide 11.1 <100.0 PG/ML Total Protein 6.9 6.4-8.2 GM/DL Albumin 4.0 3.2-4.5 GM/DL Lipase 64 8-78 U/L My Orders Orders - ELAINA REESE MD Ed Iv/Invasive Line Start (12/21/22 10:41) Ekg Tracing (12/21/22 10:41) Monitor-Rhythm Ecg Trace Only (12/21/22 10:41) Chest 1 View, Ap/Pa Only (12/21/22 10:41) Bnp [place] (12/21/22 10:41) Cbc With Automated Diff (12/21/22 10:41) Comprehensive Metabolic Panel (12/21/22 10:41) Lipase (12/21/22 10:41) Magnesium (12/21/22 10:41) Protime With Inr (12/21/22 10:41) Partial Thromboplastin Time (12/21/22 10:41) Troponin I [place] (12/21/22 10:41) Ed Iv/Invasive Line Start (12/21/22 10:41) Ns Iv 1000 Ml (Sodium Chloride 0.9%) (12/21/22 10:45) Fibrin Degradation Products (12/21/22 10:41) Vital Signs/I&O 12/21/22 12/21/22 10:12 10:12 Temp 36.4 Pulse 97 Resp 12 B/P (MAP) 121/87 (98) Pulse Ox 98 O2 Delivery Room Air Room Air Progress Progress Note : Progress Note 47-year-old female with above history coming in after syncopal episode. ABCs were intact and vitals were stable on presentation. Physical exam reassuring with no acute abnormalities, specifically she is neurovascularly intact. EKG with no acute ischemic changes, interpretation. There are what appear to be Q waves in the inferior and anterior leads. There is no prior EKG to compare to. She is never had any chest pain, and no atypical symptoms even of ACS. Unlikely this is related to what is going on today. I would like her to follow-up with cardiology however. Chest x-ray ordered and interpreted by me showing no pneumothorax, normal cardiac silhouette. An IV was placed and basic labs were obtained and were significant for normal troponin, normal BNP, negative D-dimer, normal hemoglobin. Unlikely to be a PE in the setting of no clinical signs of a DVT and a negative D-dimer, additionally she is not tachycardic or hypoxic. She is not anemic. It is possible this is an orthostatic event occurring due to the hot water in the shower with standing. She was given IV fluids here. Otherwise well-appearing and asymptomatic right now. I believe she stable for discharge with outpatient follow-up. She was sent home with strict return precautions. Initial ECG Impression Date: Dec 21, 2022 Initial ECG Impression Time: 10:46 Initial ECG Rate: 92 Initial ECG Rhythm: Normal Sinus Comment Narrow QRS, normal axis, no significant ST changes or T wave abnormalities, Q waves anterior and inferior of uncertain timing Diagnostic Imaging Diagonstic Imaging: Xray (chest) Comments [facility]. [place], [place] NAME: MITRA SANCHEZ MED REC#: [id number] PT STATUS: REG ER : 1975 PHYSICIAN: ELAINA REESE MD ADMIT DATE: 12/21/22/ER Draft Date of Exam:12/21/22 CHEST 1 VIEW, AP/PA ONLY EXAMINATION: Chest 1 view HISTORY: syncope COMPARISON: None available. FINDINGS: Heart size and pulmonary vasculature are normal. The lungs are clear without consolidation, pleural effusion, or pneumothorax. The osseous structures are intact. Left-sided portacatheter is present. IMPRESSION: 1. No acute radiographic abnormality in the chest. Dictated on workstation # [id number] Dict: 12/21/22 1116 Trans: 12/21/22 1118 [facility] [id number] Interpreted by: CYNTHIA HARRIS DO Electronically signed by: Departure Impression Primary Impression: Syncope Qualified Codes: R55 - Syncope and collapse Disposition: 01 HOME, SELF-CARE Condition: Stable Departure-Patient Inst. Decision time for Depature: 11:35 Referrals: [facility] (PCP) Primary Care Physician PARVIN VICTORIA (Family) Primary Care Physician WILDA VERNON MD Patient Instructions: Syncope (Fainting) (DC) Add. Discharge Instructions: We are not seeing any life-threatening causes of you passing out. You are not anemic, no signs of a heart attack currently, no signs of heart failure or blood clot. Essentially we are not seeing anything that is life-threatening at this time. Its possible you were mildly dehydrated and that was not helping your response. 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 Work/School Note: Work Release Form Date Seen in the Emergency Department: Dec 21, 2022 Return to Work: Dec 22, 2022 Restrictions: No Restrictions ELAINA REESE MD Dec 21, 2022 10:44
[2022-12-21] MEDS ORDERED: NS IV 1000 ML 1,000 ML IV SCH (10:45)
[2022-12-21 10:50] LABS: BASOPHILS # (AUTO) 0.1 10^3/uL (0.0-0.1); BASOPHILS % (AUTO) 1 % (0-10); EOSINOPHILS # (AUTO) 0.2 10^3/uL (0.0-0.3); EOSINOPHILS % (AUTO) 3 % (0-10); HEMATOCRIT 41 % (35-52); HEMOGLOBIN 13.7 g/dL (11.5-16.0); LYMPHOCYTES # (AUTO) 1.3 10^3/uL (1.0-4.0); LYMPHOCYTES % (AUTO) 19 % (12-44); MEAN CORPUSCULAR HEMOGLOBIN 31 pg (25-34); MEAN CORPUSCULAR HGB CONC 33 g/dL (32-36); MEAN CORPUSCULAR VOLUME 94 fL (80-99); MEAN PLATELET VOLUME 9.4 fL (9.0-12.2); MONOCYTES # (AUTO) 0.5 10^3/uL (0.0-1.0); MONOCYTES % (AUTO) 7 % (0-12); NEUTROPHILS # (AUTO) 4.9 10^3/uL (1.8-7.8); NEUTROPHILS % (AUTO) 70 % (42-75); PLATELET COUNT 256 10^3/uL (130-400)
[2022-12-21 10:59] LABS: PROTHROMBIN TIME PATIENT 13.2 SEC (12.2-14.7)
[2022-12-21 11:00] LABS: CHLORIDE 107 MMOL/L (98-107); POTASSIUM 4.2 MMOL/L (3.6-5.0); SODIUM 137 MMOL/L (135-145)
[2022-12-21 11:01] LABS: CALCIUM 9.7 MG/DL (8.5-10.1)
[2022-12-21 11:02] LABS: FIBRIN DEGRADATION PRODUCTS 0.49 UG/ML (0.00-0.49); GLUCOSE 108 MG/DL (70-105); TOTAL PROTEIN 6.9 GM/DL (6.4-8.2)
[2022-12-21 11:03] LABS: CARBON DIOXIDE 19 MMOL/L (21-32)
[2022-12-21 11:04] LABS: BILIRUBIN,TOTAL 0.5 MG/DL (0.1-1.0)
[2022-12-21 11:05] LABS: ALKALINE PHOSPHATASE 109 U/L (40-136)
[2022-12-21 11:06] LABS: CREATININE SERUM 0.81 MG/DL (0.60-1.30); GFR ESTIMATED 91
[2022-12-21 11:07] LABS: BUN/CREATININE RATIO 16
[2022-12-21 11:08] LABS: ALANINE AMINOTRANSFERASE 34 U/L (0-55); MAGNESIUM 1.9 MG/DL (1.6-2.4)
[2022-12-21 11:09] LABS: LIPASE 64 U/L (8-78)
--- NOTE | 2022-12-21 11:18 | Diagnostic Imaging Report ---
EXAMINATION: Chest 1 view HISTORY: syncope COMPARISON: None available. FINDINGS: Heart size and pulmonary vasculature are normal. The lungs are clear without consolidation, pleural effusion, or pneumothorax. The osseous structures are intact. Left-sided portacatheter is present. IMPRESSION: 1. No acute radiographic abnormality in the chest. Dictated by: Dictated on workstation # [id number]
[2022-12-21 11:42] VITALS: BP 120/87
== END 2022-12-21 11:42 | disposition home or self-care (01) ==
LOC: EDUNIT# 09:49 → ER 09:53
DX: R55 Syncope and collapse (principal)
CPT/HCPCS: 36415; 71045; 80053; 83690; 83735; 83880; 84484; 85025; 85379; 85610; 85730; 93005; 93041

== ENCOUNTER → 2023-02-07 | Outpatient (RCR) | payer MEDICAID | END | disposition home or self-care (01) | LOC: ONC 15:48 | PROVIDERS: ATTEND Internal Medicine Hematology & Oncology | DX: Z45.2 Encounter for adjustment and management of vascular access device (principal); C50.411 Malignant neoplasm of upper-outer quadrant of right female breast; N93.9 Abnormal uterine and vaginal bleeding, unspecified; R93.89 Abnormal findings on diagnostic imaging of other specified body structures; D50.9 Iron deficiency anemia, unspecified; Z79.899 Other long term (current) drug therapy; K21.9 Gastro-esophageal reflux disease without esophagitis; N95.1 Menopausal and female climacteric states | CPT/HCPCS: 96523 ==

== ENCOUNTER 2023-05-04 14:36 | Outpatient (RCR) | payer MEDICAID ==
[2023-05-04 15:10] LABS: BASOPHILS # (AUTO) 0.1 10^3/uL (0.0-0.1); BASOPHILS % (AUTO) 1 % (0-10); EOSINOPHILS # (AUTO) 0.1 10^3/uL (0.0-0.3); EOSINOPHILS % (AUTO) 1 % (0-10); HEMATOCRIT 40 % (35-52); HEMOGLOBIN 13.5 g/dL (11.5-16.0); LYMPHOCYTES # (AUTO) 1.4 10^3/uL (1.0-4.0); LYMPHOCYTES % (AUTO) 15 % (12-44); MEAN CORPUSCULAR HEMOGLOBIN 31 pg (25-34); MEAN CORPUSCULAR HGB CONC 34 g/dL (32-36); MEAN CORPUSCULAR VOLUME 92 fL (80-99); MEAN PLATELET VOLUME 9.2 fL (9.0-12.2); MONOCYTES # (AUTO) 0.5 10^3/uL (0.0-1.0); MONOCYTES % (AUTO) 5 % (0-12); NEUTROPHILS # (AUTO) 7.4 10^3/uL (1.8-7.8); NEUTROPHILS % (AUTO) 79 % (42-75); PLATELET COUNT 207 10^3/uL (130-400); WHITE BLOOD COUNT 9.5 10^3/uL (4.3-11.0)
[2023-05-04 15:23] LABS: BILIRUBIN,TOTAL 0.6 MG/DL (0.1-1.0); CALCIUM 9.2 MG/DL (8.5-10.1); CREATININE SERUM 1.03 MG/DL (0.60-1.30); POTASSIUM 3.3 MMOL/L (3.6-5.0)
== END 2023-05-10 | disposition home or self-care (01) ==
LOC: ONC 14:36
PROVIDERS: ATTEND Internal Medicine Hematology & Oncology
DX: Z45.2 Encounter for adjustment and management of vascular access device (principal); C50.411 Malignant neoplasm of upper-outer quadrant of right female breast; N93.9 Abnormal uterine and vaginal bleeding, unspecified; R93.89 Abnormal findings on diagnostic imaging of other specified body structures; D50.9 Iron deficiency anemia, unspecified; F32.A Depression, unspecified; Z79.899 Other long term (current) drug therapy; K21.9 Gastro-esophageal reflux disease without esophagitis; N95.1 Menopausal and female climacteric states
CPT/HCPCS: 80053; 85025; G0463; 36415; 36591; 99214